=== PATIENT | female | born 1980 | race Caucasian/White ===

== ENCOUNTER → 2017-12-08 09:24 | Outpatient (CLI) | payer MEDICAID, SELFPAY ==
[2017-12-09 14:30] LABS: HIV Screen 4th Generation wRfx Non Reactive (Non Reactive); Hep B Surface Ab, Qual Reactive (.); Hepatitis C Antibody <0.1 s/co ratio (0.0-0.9)
== END ==
PROVIDERS: Visit Provider Preventive Medicine Addiction Medicine
DX: Z87.898 Personal history of other specified conditions (principal)
CPT/HCPCS: 36415; 86703; 86706; 87380; G0432

== ENCOUNTER 2020-06-28 18:34 | Emergency (ER) | payer BC, SELFPAY ==
[2020-06-28 18:36] VITALS: BP 162/97; PULSE 94; RESP 22; TEMP 37; O2SAT 98; BMI 32.9
--- NOTE | 2020-06-28 18:50 | PC.NURSE ---
pt brought to triage room to assess r/t c/o SOA. NO distress noted. vital signs : bp 147/88 hr 99 rr 18 temp 98.3 SaO2 98% on RA pt reports she began having a migraine, neck stiffness, body aches, cough, and hurts when she breaths one day ago. pt reports allergy to pcn, current daily smoker. will assign pt to a room in ER as soon as one is available.
--- NOTE | 2020-06-28 19:46 | CT_ITS ---
PROCEDURE: CT HEAD/BRAIN WO CON CLINICAL INDICATION: [place] Severe headache COMPARISON: No exams were available for comparison TECHNIQUE: Axial images obtained. All CT scans at the facility use one or more dose reduction, viz: automated exposure control, ma/kV adjustment per patient size (including targeted exams where dose is matched to indication, i.e. head), or iterative reconstruction technique. FINDINGS: No midline shift, mass effect, intracranial hemorrhage, hydrocephalus, or extra-axial fluid collection is evident. There is a subtle area of decreased attenuation in the junction of the left frontal and parietal lobe in the subcortical region series 2, image 2. While this could be due to an area of ischemic gliotic change or partial volume averaging artifact, 1 cannot exclude an underlying lesion. Suggest nonemergent MRI without and with gadolinium enhancement for further evaluation in this patient with headache. The calvarium has an unremarkable appearance. No mastoid effusion. No sinus air-fluid level. IMPRESSION: 1. No acute intracranial findings. 2. There is a subtle area of decreased attenuation in the junction of the left frontal and parietal lobe in the subcortical region series 2, image 2. While this could be due to an area of ischemic gliotic change or partial volume averaging artifact, 1 cannot exclude an underlying lesion. Suggest nonemergent MRI without and with gadolinium enhancement for further evaluation in this patient with headache. Dictated by: Satnam Harper MD 06/29/2020 06:00 Satnam Harper MD in [facility] 06/29/2020 06:00
--- NOTE | 2020-06-28 19:46 | XR_ITS ---
PROCEDURE: XR CHEST 2V CLINICAL HISTORY: SOA COMPARISON: No exams were available for comparison FINDINGS: Normal heart size. There is a calcified node in the right pretracheal region. The lungs are clear without infiltrates, suspicious nodules, or pleural effusions. There is calcified granuloma in the right perihilar region. Mild thoracic scoliosis convex right.tr IMPRESSION: No acute finding Dictated by: Satnam Harper MD 06/28/2020 23:39 Satnam Harper MD in [facility] 06/28/2020 23:39
[2020-06-28 20:05] LABS: Chloride 104 mmol/L (98-107)
[2020-06-28 20:06] LABS: Potassium 3.5 mmoL/L (3.5-5.1); Sodium 139 mmol/L (136-145)
[2020-06-28 20:08] LABS: Alanine Aminotransferase 20 U/L (12-78); Alkaline Phosphatase 105 U/L (38-126); Anion Gap 10.5 mEq/L (5-15); Aspartate Amino Transferase 29 U/L (14-36); Bilirubin,Direct 0.1 mg/dl (0.0-0.4); Bilirubin,Indirect 0.4 mg/dL (0.0-0.9); Bilirubin,Total 0.5 mg/dl (0.2-1.3); Bilirubin,Unconjugated 0.4 mg/dL (0.0-1.1); Blood Urea Nitrogen 10 mg/dl (7-17); Carbon Dioxide 28 mmol/L (22.0-30.0); Creatinine Clearance Estimated 150 mL/min (50-200); Estimated Glomerular Filt Rate 92 ml/min (>60); GFR (African American) 112 ML/MIN (>60)
[2020-06-28 20:09] LABS: Albumin Level 4.6 g/dl (3.5-5.0); Calcium 9.5 mg/dl (8.4-10.2); Glucose 130 mg/dl (74-100); Total Protein,Serum 7.6 g/dl (6.3-8.2)
[2020-06-28 20:12] LABS: Basophils # 0.1 K/mm3 (0-0.2); Basophils % 0.7 % (0.1-2.0); Eosinophils # 0.4 K/mm3 (0.0-0.4); Eosinophils % 3.1 % (0.1-12.0); Hematocrit 44.6 % (37.0-47.0); Hemoglobin 14.9 g/dL (12.2-16.2); Lymphocytes # 4.3 K/mm3 (0.7-4.5); Lymphocytes % 37.4 % (10-50); Mean Corpuscular HGB Conc 33.5 g/dL (31.8-35.4); Mean Corpuscular Hemoglobin 32.4 pg (27.0-31.2); Mean Corpuscular Volume 96.7 fl (81-99); Mean Platelet Volume 7.5 fl (7.4-10.4); Monocytes # 0.7 K/mm3 (0.1-1.0); Monocytes % 5.8 % (1.7-9.3); Neutrophils # 6.1 K/mm3 (1.8-7.8); Neutrophils % 53.1 % (37.0-80.0); Platelet Count 243 K/mm3 (142-424); Red Blood Count 4.61 M/mm3 (4.20-5.40); White Blood Count 11.4 K/mm3 (4.8-10.8)
--- NOTE | 2020-06-28 20:17 | HMH.EDHA ---
ED Disposition Clinical Impression: Headache Qualifiers: Headache type: unspecified Headache chronicity pattern: acute headache Intractability: not intractable Qualified Code(s): R51.9 - Headache, unspecified Disposition: Home, Self-Care Condition on Discharge: Good Instructions: DI for Headache Additional Instructions: fluids and see pcp for follow up Referrals: Casey Acosta MD [Primary Care Provider] - - Critical Care Critical Care Time: No Attestation: On 06/28/20, the high probability of a clinically significant, sudden or life threatening deterioration of the following system(s) required my full and direct attention, intervention and personal management. The time I documented below is in addition to time spent performing reported procedures but includes the following listed in this critical care notation. Medical Decision Making - Medical Records Medical records reviewed: Yes: I reviewed the patient's medical records. - Eric Inquiry Pt receiving controlled substance: No Vital Signs: 06/28/20 18:36 Temperature 98.6 F Temperature Source Oral Pulse Rate [Right Brachial] 94 H Respiratory Rate 22 Blood Pressure [Right Arm] 162/97 H Blood Pressure Mean [Right Arm] 118 02 Sat by Pulse Oximetry 98 Oxygen Delivery Method Room Air - Lab Data Lab results reviewed: Yes: I reviewed the patient's lab results. Lab Results 06/28/20 19:40: WBC 11.4 H, RBC 4.61, Hgb 14.9, Hct 44.6, MCV 96.7, MCH 32.4 H, MCHC 33.5, RDW 14.0, Plt Count 243, MPV 7.5, Neut % (Auto) 53.1, Lymph % (Auto) 37.4, Mitchell % (Auto) 5.8, Eos % (Auto) 3.1, Baso % (Auto) 0.7, Neut # (Auto) 6.1, Lymph # (Auto) 4.3, Mitchell # (Auto) 0.7, Eos # (Auto) 0.4, Baso # (Auto) 0.1 06/28/20 19:40: Sodium 139, Potassium 3.5, Chloride 104, Carbon Dioxide 28, Anion Gap 10.5, BUN 10, Creatinine 0.70, Estimated Creat Clear 150, Estimated GFR 92, Est GFR ( Amer) 112, Glucose 130 H, Calcium 9.5, Total Bilirubin 0.5, Direct Bilirubin 0.1, Conjugated Bilirubin 0.0, Indirect Bilirubin 0.4, Unconjugated Bilirubin 0.4, AST 29, ALT 20, Alkaline Phosphatase 105, Troponin I < 0.01, NT-Pro-B Natriuret Pep 79.8, Total Protein 7.6, Albumin 4.6 06/28/20 19:40: Lactate 1.0 Result diagrams: 06/28/20 19:40 06/28/20 19:40 Orders (Tests/Meds): ED MEDICATIONS Generic Name Dose Route Start Last Admin Trade Name Freq PRN Reason Stop Dose Admin Sodium Chloride 1,000 mls @ 999 mls/hr 06/28/20 20:00 06/28/20 19:55 Sod Chlor 0.9% 1000ml Bag IV 06/28/20 21:00 999 mls/hr .Q1H1M VIVI Administration Discontinued Medications Generic Name Dose Route Start Last Admin Trade Name Freq PRN Reason Stop Dose Admin Ketorolac Tromethamine 30 mg 06/28/20 19:51 06/28/20 19:55 Ketorolac 30mg/Ml Vial IV 06/28/20 19:52 30 mg ONCE ONE Administration Methylprednisolone Sodium Succinate 125 mg 06/28/20 19:51 06/28/20 19:55 Methylprednisolone Sod Succ 125mg Vial IV 06/28/20 19:52 125 mg ONCE ONE Administration Promethazine HCl 25 mg 06/28/20 20:57 06/28/20 21:01 Promethazine Hcl 25mg/Ml 1ml Vial IV 06/28/20 20:58 25 mg ONCE ONE Administration Sodium Chloride 25 ml 06/28/20 20:57 Sodium Chloride 0.9% 25ml Bag IV 06/28/20 20:58 ONCE ONE ORDERS Category Date Time Status CT head/brain wo con Stat Cat Scan 06/28/20 19:46 Taken XR chest 2V Stat Exams 06/28/20 19:46 Taken Basic Metabolic Panel Stat Lab 06/28/20 19:40 Results Brain Natriuretic Peptide Stat Lab 06/28/20 19:40 Results Liver Panel Stat Lab 06/28/20 19:40 Results Procalcitonin Stat Lab 06/28/20 19:40 Results Troponin I Q3H Lab 06/28/20 23:00 Ordered Troponin I Q3H Lab 06/29/20 02:00 Ordered Troponin I Stat Lab 06/28/20 19:40 Results - Radiology Data #1 Image(s): Chest Image Reviewed: Yes I reviewed the patient's radiology image Preliminary Findings: Abnormal (hilar changes ) - CT Data CT Scan: Head Time Received: 21:[address] Revi
[2020-06-28 20:18] LABS: NT Pro Brain Natriuretic Pep. 79.8 pg/mL (0-125)
[2020-06-28 20:24] LABS: Troponin I < 0.01 ng/ml (0.00-0.034)
[2020-06-28 21:27] VITALS: BP 144/81; PULSE 76; RESP 16; TEMP 36.8; O2SAT 95
[2020-06-28 21:50] LABS: Procalcitonin 0.052 ng/mL (0.0-2.0)
== END 2020-06-28 21:30 | disposition home or self-care (01) ==
PROVIDERS: Emergency Provider Emergency Medicine; PCP Emergency Medicine
DX: R51.9 Headache, unspecified (principal); R06.02 Shortness of breath; R11.0 Nausea; F33.1 Major depressive disorder, recurrent, moderate; F17.210 Nicotine dependence, cigarettes, uncomplicated; Z79.899 Other long term (current) drug therapy; Z88.0 Allergy status to penicillin; E78.5 Hyperlipidemia, unspecified
CPT/HCPCS: 70450; 71046; 80048; 80076; 83605; 83880; 84145; 84484; 85025; 96365; 96375; 99283

== ENCOUNTER → 2020-07-07 10:31 | Outpatient (CLI) | payer BC, SELFPAY ==
--- NOTE | 2020-07-07 10:31 | MR_ITS ---
PROCEDURE: MR HEAD/BRAIN WO/W CON CLINICAL INDICATION: abn CT ABNORMAL CT HEAD 06-28-20, HEADACHES X1 WEEK. COMPARISON: CT CT HEAD/BRAIN WO CON from 06/28/2020 TECHNIQUE: Routine multiplanar multi echo sequences are performed without gadolinium enhancement. FINDINGS: No midline shift, mass effect, intracranial hemorrhage, or hydrocephalus. No evidence of acute infarction. The cerebellopontine angles, cerebellum, brainstem and mid brain have an unremarkable appearance. No enhancing lesions are evident. There is a small area of increased T2 signal within the white matter at the left parietal lobe. This area does not demonstrate any enhancement or restricted diffusion. There are a few other small T2 white matter hyperintensities. The pituitary, optic chiasm, corpus callosum, and cranial cervical junction have an unremarkable appearance. IMPRESSION: 1. There is a small T2 white matter hyperintensity measuring 6 mm in the left anterior parietal region corresponding to the CT abnormality along with a few other smaller T2 white matter hyperintensities. This does not enhance or show restricted diffusion and is nonspecific and could be due to ischemic gliotic change from microvascular disease. Demyelinating process such as multiple sclerosis is included in the differential diagnosis. Migraine headache is also consideration. Follow-up may confirm stability. 2. No acute infarction. No enhancing lesion or other significant anomaly Dictated by: Satnam Harper MD 07/13/2020 07:56 Satnam Harper MD in [place] 07/13/2020 07:56
== END ==
PROVIDERS: PCP Emergency Medicine; Visit Provider Emergency Medicine
DX: R51.9 Headache, unspecified (principal); R93.0 Abnormal findings on diagnostic imaging of skull and head, not elsewhere classified
CPT/HCPCS: 70553; A9576

== ENCOUNTER → 2020-07-11 14:06 | Outpatient (CLI) | payer BC, SELFPAY | PROVIDERS: PCP Emergency Medicine; Visit Provider Emergency Medicine | DX: R90.89 Other abnormal findings on diagnostic imaging of central nervous system (principal); R51.9 Headache, unspecified ==

== ENCOUNTER → 2020-08-01 08:27 | Outpatient (CLI) | payer BC, SELFPAY ==
--- NOTE | 2020-08-01 08:30 | XR_ITS ---
PROCEDURE: XR WRIST LT MIN 3V CLINICAL INDICATION: left wrist pain COMPARISON: No exams were available for comparison FINDINGS: No fracture or dislocation. No lytic or blastic change. There is normal mineralization. The joint spaces are well-preserved. No significant degenerative/arthritic changes. No erosive changes evident. Other findings:None. IMPRESSION: No acute findings. Dictated by: Satnam Harper MD 08/01/2020 19:17 Satnam Harper MD in [facility] 08/01/2020 19:17
--- NOTE | 2020-08-01 08:30 | XR_ITS ---
PROCEDURE: XR WRIST RT MIN 3V CLINICAL INDICATION: right wrist pain COMPARISON: No exams were available for comparison FINDINGS: No fracture or dislocation. No lytic or blastic change. There is normal mineralization. The joint spaces are well-preserved. No significant degenerative/arthritic changes. No erosive changes evident. Other findings:Minimal spurring noted at the radiocarpal joint IMPRESSION: Mild degenerative change radiocarpal joint Dictated by: Satnam Harper MD 08/01/2020 19:17 Satnam Harper MD in [place] 08/01/2020 19:17
== END ==
LOC: RAD 08:28
PROVIDERS: PCP Emergency Medicine; Visit Provider Orthopaedic Surgery
DX: M25.532 Pain in left wrist (principal); M25.531 Pain in right wrist
CPT/HCPCS: 73110

== ENCOUNTER → 2020-08-08 15:09 | Outpatient (CLI) | payer BC, SELFPAY ==
[2020-08-08 15:55] LABS: Basophils # 0.1 K/mm3 (0-0.2); Basophils % 0.6 % (0.1-2.0); Eosinophils # 0.3 K/mm3 (0.0-0.4); Eosinophils % 2.3 % (0.1-12.0); Hematocrit 44.2 % (37.0-47.0); Hemoglobin 15.4 g/dL (12.2-16.2); Lymphocytes # 4.2 K/mm3 (0.7-4.5); Lymphocytes % 34.3 % (10-50); Mean Corpuscular HGB Conc 34.9 g/dL (31.8-35.4); Mean Corpuscular Hemoglobin 32.5 pg (27.0-31.2); Mean Corpuscular Volume 93.2 fl (81-99); Mean Platelet Volume 7.7 fl (7.4-10.4); Monocytes # 0.7 K/mm3 (0.1-1.0); Monocytes % 5.7 % (1.7-9.3); Neutrophils % 57.1 % (37.0-80.0); Platelet Count 288 K/mm3 (142-424); Red Blood Count 4.74 M/mm3 (4.20-5.40); Red Cell Distribution Width 13.7 % (11.5-17.5); White Blood Count 12.3 K/mm3 (4.8-10.8)
[2020-08-08 16:23] LABS: Chloride 101 mmol/L (98-107); Sodium 137 mmol/L (136-145)
[2020-08-08 16:24] LABS: Potassium 3.8 mmoL/L (3.5-5.1)
[2020-08-08 16:26] LABS: Alanine Aminotransferase 17 U/L (12-78); Albumin Level 4.8 g/dl (3.5-5.0); Albumin/Globulin Ratio 1.7 (1.1-1.8); Alkaline Phosphatase 99 U/L (38-126); Anion Gap 11.8 mEq/L (5-15); Aspartate Amino Transferase 26 U/L (14-36); Bilirubin,Total 0.5 mg/dl (0.2-1.3); Blood Urea Nitrogen 9 mg/dl (7-17); Carbon Dioxide 28 mmol/L (22.0-30.0); Estimated Glomerular Filt Rate 61 ml/min (>60); GFR (African American) 74 ML/MIN (>60); Globulin 2.9 g/dL (1.3-3.2); Total Protein,Serum 7.7 g/dl (6.3-8.2)
[2020-08-08 16:27] LABS: Calcium 10.5 mg/dl (8.4-10.2); Glucose 98 mg/dl (74-100)
[2020-08-08 16:50] LABS: Coronavirus 19 IgG Antibody Negative (Negative); Coronavirus 19 IgM Antibody Negative (Negative)
== END ==
PROVIDERS: Visit Provider Orthopaedic Surgery
DX: Z01.818 Encounter for other preprocedural examination (principal); Z11.52 Encounter for screening for COVID-19; G56.02 Carpal tunnel syndrome, left upper limb
CPT/HCPCS: 36415; 80053; 85025; 86328

== ENCOUNTER 2020-08-10 07:26 | Day surgery (SDC) | payer BC, SELFPAY ==
[2020-08-07 13:26] VITALS: BMI 32.9
[2020-08-10 06:23] LABS: HCG Qualitative, Serum Negative (Negative)
[2020-08-10 07:49] VITALS: BP 127/69; PULSE 72; RESP 20; TEMP 36.5; O2SAT 97
--- NOTE | 2020-08-10 08:06 | P.PN_ITS ---
[facility] Anesthesia Checklist - Patient Identification Patient Identification: Arm Band - Structural Data Admitted From: Home Planned Operative Procedure/s: Left CTR Consent for Planned Operative Procedure(s) Verified: Yes Verified Documents: Surgical Consent - NPO Status Verified Time NPO: 00:00 - Anesthesia Plan Anesthesia Risk discussed: Yes Anesthesia Plan: Verified ASA Class: II Anesthesia Type: Local & MAC [facility] History I have reviewed the patient's past medical history: Yes Medical History: Reports:: Arrhythmia, Depression, Hyperlipidemia, Lung Disease Denies:: Cancer, Diabetes Mellitus Type 1, Diabetes Mellitus Type 2, MRSA *Have you ever received a pneumonia vaccine?: No *Have you received a flu vaccine this season?: Yes Anesthesia experience/problems:: non Laterality Cases: Left: Arthroscopy Knee, Breast Biopsy, Bilateral: Tonsillectomy Other Surgeries: Yes: Cardiac Catheterization, Colonoscopy, Tubal Ligation Amputation: No Fractures: Yes (rt wrist) - *Social History Last grade of school completed: 11th or 12th Smoking Status: Current every day smoker Tobacco Type: cigarettes # Packs/Day (cigarettes): 2 Alcohol Intake: never Substance Use Type: prescription drug *Occupational Status:: employed Housing: house Household Members: family *Travel in the last 8 weeks: None - Psychiatric History Pschychiatric History:: Reports:: Depression Family Hx:: Diabetes, Heart Attack, Hypertension, Coronary Artery Disease, Cancer, Hyperlipidemia, Thyroid Disorder, Substance abuse
[2020-08-10 10:01] VITALS: BP 123/59; PULSE 85; RESP 18; TEMP 36.3; O2SAT 98
[2020-08-10 10:16] VITALS: BP 111/78; PULSE 82; RESP 18; O2SAT 96
[2020-08-10 10:31] VITALS: BP 104/55; PULSE 80; RESP 16; O2SAT 98
--- NOTE | 2020-08-10 10:40 | HMH.OPNOTE ---
Date of procedure: 08/10/20 Pre-op Diagnosis:: Carpal tunnel syndrome, left wrist Post-op Diagnosis:: Same Procedure performed:: Open carpal tunnel release, left wrist Surgeon:: Maxi Nru MD [facility] Cutter(s):: Caitie Georges SELVAGE MACHINE OPERATOR:: Other (Carl Aquino) Anesthesia: MAC, local (10 mL of 0.5% Marcaine with epinephrine) Estimated blood loss (mL): 2 Clinical Note:: Patient is a 40-year-old female with bilateral carpal tunnel syndrome with chronic symptoms. EMG/NCV studies confirmed carpal tunnel syndrome on both sides. Her symptoms are more severe on the left side. Patient is having significant and disabling symptoms and has failed to respond adequately to conservative management. Therefore, carpal tunnel release surgery is necessary to relieve symptoms, preserve the remaining fibers of the median nerve, improve function and decrease the pain, paresthesias and weakness and to prevent permanent nerve damage. 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 She has history of hypertension and abnormal heart rate. Not a known diabetic. Please refer to my office note for full details. Operative findings:: The intraoperative findings showed the median nerve to be very tightly compressed in the distal part of the carpal tunnel and hyperemic. The flexor retinaculum was noted to be thick and very tight. There was mild synovitis in the carpal tunnel. There was no evidence of any space-occupying lesions within the carpal tunnel. Operative note:: On the day of the surgery the patient was met in the preoperative area. Patient was positively identified and the operative site was marked and initialed by me. A physical examination was performed and the chart was updated. I again discussed the procedure, risks and benefits and alternatives with the patient. The complications discussed include but are not limited to- bleeding, injury to nerves, blood vessels and tendons, infection, wound dehiscence, incomplete relief/continued pain, persistent numbness, palmar hypersensitivity, pillar pain, DVT/PE, complex regional pain syndrome(CRPS), worsening of nerve damage, failure of the condition to improve, incomplete return of function, bowstringing of tendons, weakness of perfect bind machine operator strength, recurrence, failure of the surgery to accomplish the desired goals, decreased use of the hand, loss of use of the arm, loss of the hand or arm, loss of life. Likely need for further surgery in the future has been discussed. I've indicated to the patient where the proposed incision would be made and also discussed the possibility of extending the incision if needed to accomplish an effective release. We have discussed how the goal of surgery is to protect the fibers which have remained healthy and hopefully reverse the symptoms of the fibers which are compromised but still recoverable. We have explained that, fibers that are permanently damaged will not recover. Patient asked appropriate questions and all have been answered by me. Patient wished to proceed with the surgery. Patient understood the risks, agreed to proceed with surgery, and no guarantees or assurances were given or implied. The patient was brought to the operating room and placed supine on the operating table. The left upper extremity was placed over a side table. All the bony prominences were well-padded. The patient had a MAC anesthesia administered by the football coach. The left upper extremity was prepped and draped in the usual sterile fashion. A preprocedure timeout was performed as per hospital policy. The skin incision was marked using the Toussaint's landmarks, just ulnar to the thenar crease. I injected 5 cc of 0.5% Marcaine with epinephrine along the line of incision for local anesthesia. The limb was exsanguinated with the Esmarch bandage and tourniquet was inflated to 250 mmHg. Please see nursing records for the total tourniquet time. Toussaint's landmarks were utilized and a skin incision was made parallel and just
[2020-08-10 10:46] VITALS: BP 109/81; PULSE 78; RESP 16; O2SAT 97
== END 2020-08-10 10:46 | disposition home or self-care (01) ==
LOC: OR 07:28
PROVIDERS: PCP Emergency Medicine; Visit Provider Orthopaedic Surgery
PROC: (CPT 64721; principal; 2020-08-10 09:00)
DX: G56.02 Carpal tunnel syndrome, left upper limb (principal)
CPT/HCPCS: 64721; 84703; 96374

== ENCOUNTER → 2020-08-23 13:19 | Outpatient (CLI) | payer BC, SELFPAY ==
--- NOTE | 2020-08-23 13:19 | US_ITS ---
PROCEDURE: US TRANSVAGINAL CLINICAL INDICATION: pelvic pain, painful periods, painful intercourse COMPARISON: No exams were available for comparison FINDINGS: UTERUS: 9cm x 6cmx 5cm with a combined endometrial thickness of 12.8mm LEFT OVARY: [id number] with a volume of 4.5ml. RIGHT OVARY: [id number] with a volume of 11.3ml. Uterus is somewhat bulky measuring 9 x 5 x 6 cm in the endometrium is slightly thickened at 13 mm. Along posterior aspect of the uterus there is a fibroid at 2.5 x 1.5 cm. There are small cyst involving the right ovary measuring up to 2 cm. The left ovary has an unremarkable appearance. IMPRESSION: Bulky uterus with uterine fibroid. Mildly thickened endometrium. 2 cm right ovarian cyst Dictated by: Satnam Harper MD 08/23/2020 16:55 Satnam Harper MD in [facility] 08/23/2020 16:55
== END ==
PROVIDERS: PCP Emergency Medicine; Visit Provider Nurse Practitioner Obstetrics & Gynecology
DX: R10.2 Pelvic and perineal pain (principal); N94.6 Dysmenorrhea, unspecified; N94.10 Unspecified dyspareunia
CPT/HCPCS: 76830

== ENCOUNTER → 2020-09-05 16:38 | Outpatient (CLI) | payer BC, SELFPAY ==
[2020-09-05 17:40] LABS: Basophils # 0.1 K/mm3 (0-0.2); Basophils % 0.7 % (0.1-2.0); Eosinophils # 0.3 K/mm3 (0.0-0.4); Eosinophils % 2.7 % (0.1-12.0); Hematocrit 43.5 % (37.0-47.0); Hemoglobin 14.2 g/dL (12.2-16.2); Lymphocytes # 3.1 K/mm3 (0.7-4.5); Mean Corpuscular HGB Conc 32.7 g/dL (31.8-35.4); Mean Corpuscular Hemoglobin 31.5 pg (27.0-31.2); Mean Corpuscular Volume 96.4 fl (81-99); Mean Platelet Volume 7.4 fl (7.4-10.4); Monocytes # 0.5 K/mm3 (0.1-1.0); Neutrophils # 5.8 K/mm3 (1.8-7.8); Neutrophils % 59.7 % (37.0-80.0); Platelet Count 264 K/mm3 (142-424); Red Blood Count 4.51 M/mm3 (4.20-5.40); Red Cell Distribution Width 13.2 % (11.5-17.5); White Blood Count 9.7 K/mm3 (4.8-10.8)
[2020-09-05 18:20] LABS: Alanine Aminotransferase 23 U/L (12-78); Albumin Level 4.5 g/dl (3.5-5.0); Albumin/Globulin Ratio 1.7 (1.1-1.8); Alkaline Phosphatase 97 U/L (38-126); Aspartate Amino Transferase 32 U/L (14-36); Bilirubin,Total 0.4 mg/dl (0.2-1.3); Blood Urea Nitrogen 7 mg/dl (7-17); Carbon Dioxide 28 mmol/L (22.0-30.0); Chloride 105 mmol/L (98-107); Estimated Glomerular Filt Rate 92 ml/min (>60); GFR (African American) 112 ML/MIN (>60); Globulin 2.7 g/dL (1.3-3.2); Glucose 100 mg/dl (74-100); Sodium 139 mmol/L (136-145); Total Protein,Serum 7.2 g/dl (6.3-8.2)
[2020-09-05 18:31] LABS: Coronavirus 19 IgG Antibody Negative (Negative); Coronavirus 19 IgM Antibody Negative (Negative)
== END ==
PROVIDERS: Visit Provider Orthopaedic Surgery
DX: Z01.818 Encounter for other preprocedural examination (principal); Z20.822 Contact with and (suspected) exposure to COVID-19; G56.02 Carpal tunnel syndrome, left upper limb
CPT/HCPCS: 36415; 80053; 85025; 86328

== ENCOUNTER 2020-09-07 08:27 | Day surgery (SDC) | payer BC, SELFPAY ==
[2020-09-05 10:08] VITALS: BMI 31.6
[2020-09-07] VITALS (7 sets, daily range): BP systolic 120–150; BP diastolic 70–87; PULSE 80–84; RESP 18; TEMP 36.6–43; O2SAT 96–100
[2020-09-07 06:35] LABS: HCG Qualitative, Serum Negative (Negative)
--- NOTE | 2020-09-07 13:04 | HMH.OPNOTE ---
Date of procedure: 09/07/20 Pre-op Diagnosis:: Carpal tunnel syndrome, right wrist Post-op Diagnosis:: Same Procedure performed:: Open carpal tunnel release, right wrist Surgeon:: Maxi Nur MD Machine Stamper(s):: Sherly Collier LANGUAGE PATHOLOGIST:: Thad Acosta Anesthesia: MAC, local Estimated blood loss (mL): 2 Clinical Note:: Patient is a 40-year-old female with right carpal tunnel syndrome with long-standing symptoms. EMG/NCV studies confirmed carpal tunnel syndrome on both sides and she previously underwent successful carpal tunnel release on the left side. Patient is having significant and disabling symptoms and has failed to respond adequately to conservative management.]. Therefore, carpal tunnel release surgery is necessary to relieve symptoms, preserve the remaining fibers of the median nerve, improve function and decrease the pain, paresthesias and weakness and to prevent permanent nerve damage. Please refer to my office note for full details. Operative findings:: The intraoperative findings showed the median nerve to be very tightly compressed and hyperemic. The flexor retinaculum was noted to be thick and tight. There was mild synovitis in the carpal tunnel. There was no evidence of any space-occupying lesions within the carpal tunnel. Operative note:: On the day of the surgery the patient was met in the preoperative area. Patient was positively identified and the operative site was marked and initialed by me. A physical examination was performed and the chart was updated. I again discussed the procedure, risks and benefits and alternatives with the patient. The complications discussed include but are not limited to- bleeding, injury to nerves, blood vessels and tendons, infection, wound dehiscence, incomplete relief/continued pain, persistent numbness, palmar hypersensitivity, pillar pain, DVT/PE, complex regional pain syndrome(CRPS), worsening of nerve damage, failure of the condition to improve, incomplete return of function, bowstringing of tendons, weakness of caregiver services home strength, recurrence, failure of the surgery to accomplish the desired goals, decreased use of the hand, loss of use of the arm, loss of the hand or arm, loss of life. Likely need for further surgery in the future has been discussed. I've indicated to the patient where the proposed incision would be made and also discussed the possibility of extending the incision if needed to accomplish an effective release. We have discussed how the goal of surgery is to protect the fibers which have remained healthy and hopefully reverse the symptoms of the fibers which are compromised but still recoverable. We have explained that, fibers that are permanently damaged will not recover. Patient previously had surgery on the left side with very good symptomatic relief and is aware of the procedure as well as postoperative recovery. Patient asked appropriate questions and all have been answered by me. Patient wished to proceed with the surgery. Patient understood the risks, agreed to proceed with surgery, and no guarantees or assurances were given or implied. The patient was brought to the operating room and placed supine on the operating table. The right upper extremity was placed over a side table. All the bony prominences were well-padded. MAC anesthesia administered with instructor product inspection. A well-padded tourniquet cuff was placed over the upper arm. The right upper extremity was prepped and draped in the usual sterile fashion. A preprocedure timeout was performed as per hospital policy. The skin incision was marked using the Toussaint's landmarks, just ulnar to the thenar crease. I have then injected 10 cc of 0.5% Marcaine with epinephrine along the course of the proposed incision and into the carpal tunnel. The tourniquet was not utilized during the procedure. Toussaint's landmarks were utilized and a skin incision was made parallel and just ulnar to the thenar crease with a 15 blade. Blunt tissue dissection was cynthia
== END 2020-09-07 12:40 | disposition home or self-care (01) ==
LOC: OR 08:29
PROVIDERS: PCP Emergency Medicine; Visit Provider Orthopaedic Surgery
PROC: (CPT 64721; principal; 2020-09-07 10:30)
DX: G56.01 Carpal tunnel syndrome, right upper limb (principal); Z79.899 Other long term (current) drug therapy; Z72.0 Tobacco use
CPT/HCPCS: 64721; 84703; 96374

== ENCOUNTER → 2020-09-26 13:20 | Outpatient (CLI) | payer BC, SELFPAY ==
[2020-09-26 13:39] LABS: Basophils # 0.1 K/mm3 (0-0.2); Basophils % 0.9 % (0.1-2.0); Eosinophils # 0.3 K/mm3 (0.0-0.4); Eosinophils % 2.8 % (0.1-12.0); Hematocrit 45.2 % (37.0-47.0); Hemoglobin 14.8 g/dL (12.2-16.2); Lymphocytes # 3.4 K/mm3 (0.7-4.5); Lymphocytes % 33.7 % (10-50); Mean Corpuscular HGB Conc 32.7 g/dL (31.8-35.4); Mean Corpuscular Hemoglobin 31.1 pg (27.0-31.2); Mean Corpuscular Volume 95.1 fl (81-99); Mean Platelet Volume 7.8 fl (7.4-10.4); Monocytes # 0.6 K/mm3 (0.1-1.0); Monocytes % 5.5 % (1.7-9.3); Neutrophils # 5.8 K/mm3 (1.8-7.8); Neutrophils % 57.2 % (37.0-80.0); Platelet Count 256 K/mm3 (142-424); Red Blood Count 4.75 M/mm3 (4.20-5.40); Red Cell Distribution Width 13.6 % (11.5-17.5); White Blood Count 10.2 K/mm3 (4.8-10.8)
[2020-09-26 14:09] LABS: Chloride 110 mmol/L (98-107); Sodium 141 mmol/L (136-145)
[2020-09-26 14:12] LABS: Anion Gap 11.4 mEq/L (5-15); Blood Urea Nitrogen 9 mg/dl (7-17); Calcium 9.8 mg/dl (8.4-10.2); Carbon Dioxide 24 mmol/L (22.0-30.0); Estimated Glomerular Filt Rate 110 ml/min (>60); GFR (African American) 133 ML/MIN (>60); Glucose 103 mg/dl (74-100); Potassium 4.4 mmoL/L (3.5-5.1)
[2020-09-26 14:24] LABS: Coronavirus 19 IgG Antibody Negative (Negative); Coronavirus 19 IgM Antibody Negative (Negative)
[2020-09-26 18:27] LABS: HCG Qualitative, Serum Negative (Negative)
== END ==
PROVIDERS: Visit Provider Nurse Practitioner Obstetrics & Gynecology
DX: Z01.818 Encounter for other preprocedural examination (principal); Z11.52 Encounter for screening for COVID-19; N39.3 Stress incontinence (female) (male); N92.0 Excessive and frequent menstruation with regular cycle; R10.2 Pelvic and perineal pain
CPT/HCPCS: 36415; 80048; 84703; 85025; 86328

== ENCOUNTER 2020-09-27 05:55 | Day surgery (SDC) | payer BC, SELFPAY ==
[2020-09-25 13:10] VITALS: BMI 33.6
[2020-09-27] VITALS (13 sets, daily range): BP systolic 127–155; BP diastolic 70–117; PULSE 83–137; RESP 18–19; TEMP 36.5–43; O2SAT 97–99
--- NOTE | 2020-09-27 06:58 | P.PN_ITS ---
[facility] Anesthesia Checklist - Patient Identification Patient Identification: Arm Band - Structural Data Admitted From: Home Planned Operative Procedure/s: Hysteroscopy, D&C, TVT Consent for Planned Operative Procedure(s) Verified: Yes Verified Documents: Surgical Consent, History and Physical - NPO Status Verified Time NPO: 00:00 - Additional verifications Anesthesia Reactions: No Hx Blood Transfusions: No Blood Transfusion Reaction: No - Airway Assessment C-Spine Mobility Assessed: Yes (mp2) TMJ Mobility Assessed: Yes Dentition: Good Dentition (upper dentures removed) - Neurological Assessment Level of Consciousness: Awake, Alert - Anesthesia Plan Anesthesia Risk discussed: Yes Anesthesia Plan: Verified ASA Class: II Anesthesia Type: General [facility] History I have reviewed the patient's past medical history: Yes Medical History: Reports:: Arrhythmia, Depression, Hyperlipidemia, Hypertension, Lung Disease Denies:: Cancer, Diabetes Mellitus Type 1, Diabetes Mellitus Type 2, Internal Pacemaker, MRSA, Seizures *Have you ever received a pneumonia vaccine?: No *Have you received a flu vaccine this season?: Yes Other Medical History: Denies: Blood Transfusion Reaction Anesthesia experience/problems:: nac Laterality Cases: Left: Arthroscopy Knee, Breast Biopsy, Bilateral: Carpal Tunnel Release, Tonsillectomy Other Surgeries: Yes: Cardiac Catheterization, Colonoscopy, Tubal Ligation. No: Pacemaker Amputation: No Fractures: Yes (rt wrist) - *Social History Smoking Status: Current every day smoker Tobacco Type: cigarettes # Packs/Day (cigarettes): 1 Alcohol Intake: never Substance Use Type: prescription drug *Occupational Status:: employed Housing: house Household Members: spouse *Travel in the last 8 weeks: None - Psychiatric History Pschychiatric History:: Reports:: Depression Family Hx:: Diabetes, Heart Attack, Hypertension, Coronary Artery Disease, Cancer, Hyperlipidemia, Thyroid Disorder, Substance abuse
--- NOTE | 2020-09-27 08:24 | HMH.OPNOTE ---
Date of procedure: 09/27/20 Pre-op Diagnosis:: Menorrhagia, genuine stress urinary incontinence Post-op Diagnosis:: Menorrhagia, genuine stress urinary incontinence Procedure performed:: Hysteroscopy, dilation and curettage, tension-free vaginal tape Surgeon:: Canelo Soto MD TECHNICAL DELIVERY MANAGER:: Other (Dafne Mohan) Anesthesia: LMA Estimated blood loss (mL): 600 Clinical Note:: She is a 40-year-old lady who complains of extremely heavy periods. She also demonstrated genuine stress urinary incontinence at the time of urodynamics in my office. An ultrasound showed that she had a thickened endometrium. As result of that she was offered hysteroscopy, D&C as well as TVT. The risks and benefits of surgery were discussed with the patient prior to surgery. Operative findings:: She had a normal-appearing endometrial cavity. It was quite lush. Tubal ostia were seen. The bladder was visualized and appeared normal. There was a small amount of squamous metaplasia at the bladder base. Operative note:: She was taken to the operating room where LMA anesthesia was found be adequate. She was prepped and draped in normal sterile fashion in the lithotomy position. The bladder was drained. Weighted speculum was placed in the vagina. The anterior lip of the cervix was grasped with a tenaculum and the cervix was dilated to approximately 6 mm. I then inserted a hysteroscope into the uterine cavity. The findings were as previously dictated. I then further dilated the cervix to approximately 8 mm and using a medium curette I curetted the entire endometrial cavity. I injected 20 cc of 1% Xylocaine with epinephrine along the urethra and under the pubic rami bilaterally. I then injected 60 cc of 0.5% ropivacaine along the trocar paths in the space of Retzius with a spinal needle from above. I then grasped the vaginal mucosa with an Allis clamp just below the urethra and then again approximately 3 cm along. Made an incision with knife. I then grasped the edges of the vaginal mucosa using Metzenbaum scissors dissected out laterally to each pubic rami. I then inserted a catheter in the bladder with an obturator. I pulled it to its ipsilateral side and placed the left side of the tape. I went under the pubic rami, through the urogenital diaphragm and through the space of Retzius. I then passed the catheter out through the skin. Then inspected the bladder with a 70 degree cystoscope. There is no evidence of tape within the bladder. I then pulled the tape through to the midline. The bladder was then drained and once again the obturator was placed within the urethra and pulled to its ipsilateral side. I then placed the right side of the tape in the same fashion as the left side. Once again the bladder was inspected with a 70 degree cystoscope. There was no evidence of tape within the bladder. I then placed a packing forcep under the tape and removed his outer sheath. Once again I tested for attention by pushing on the bladder from above. There was no evidence of leakage. The tape was loose. I then cut the tape off at the level of the skin and pulled out the skin. The vaginal mucosa was then closed using interrupted 2-0 Vicryl suture in a mattress fashion. The suprapubic incisions were closed with Dermabond. Sterile dressings were applied. The bladder was then drained. She tolerated procedure well and was taken to the recovery room in excellent condition. All sponge, instrument and needle counts were correct. The estimated blood loss was 600 cc. She lost more blood than normal because she was quite oozy from the vaginal mucosa. Condition: stable Disposition: PACU Specimens:: Endometrial curettings Complications:: None
--- NOTE | 2020-09-27 08:28 | HMH.ANESI ---
[facility] Anesthesia Record Part I Intake, IV Amount: 800 Estimated blood loss (mL): 600 Urine output (mL): 0 Blood Pressure: 144/117 (Patient unable to stay still) SaO2: 99 Pulse Rate: 119 Respiratory Rate: 19 Temperature: 98.8 F Patient is:: Awake Stable to PACU at:: 08:22
--- NOTE | 2020-09-27 09:39 | PC.NURSE ---
IBUPROFEN 600MG GIVEN PO PER M BIANCA GONZALEZ FOR C/O PAIN PER DR DOWNEY ORDERS.
--- NOTE | 2020-09-27 14:29 | P.PN_ITS ---
[facility] Anesthesia Record Part II Discharge Time: 08:52 Destination: Surgical Day Care (OP Surgery) PACU nurse assessment reviewed?: Yes Patient Condition:: Good Anesthesia Complications:: None Swallowing reflex intact?: Yes Cyanosis?: No Blood Pressure: 137/79 Pulse Rate: 88 Temperature: 98.9 F Mental Status: Alert & Oriented Pain level:: 4 Nausea and/or vomitting:: None Intake, IV Amount: 0
== END 2020-09-27 09:52 | disposition home or self-care (01) ==
PROVIDERS: PCP Emergency Medicine; Visit Provider Nurse Practitioner Obstetrics & Gynecology
PROC: 0UDB8ZZ Extraction of Endometrium, Via Natural or Artificial Opening Endoscopic (ICD-10-PCS; CPT 58558; principal; 2020-09-27 07:30)
DX: N92.1 Excessive and frequent menstruation with irregular cycle (principal); N39.3 Stress incontinence (female) (male); I10 Essential (primary) hypertension; E78.5 Hyperlipidemia, unspecified; F32.9 Major depressive disorder, single episode, unspecified; I49.9 Cardiac arrhythmia, unspecified; Z87.39 Personal history of other diseases of the musculoskeletal system and connective tissue; Z72.0 Tobacco use; Z83.3 Family history of diabetes mellitus; Z82.49 Family history of ischemic heart disease and other diseases of the circulatory system; Z83.438 Family history of other disorder of lipoprotein metabolism and other lipidemia; Z80.9 Family history of malignant neoplasm, unspecified
CPT/HCPCS: 58558; 51992; 96374; C1771; J2405

== ENCOUNTER → 2020-12-25 15:15 | Outpatient (CLI) | payer BC, SELFPAY ==
[2020-12-25 18:32] LABS: Phencyclidine Screen,Urine Negative ng/ml (<25)
[2020-12-25 18:51] LABS: Amphetamine/Metha Screen,Urine Negative ng/ml (<1000)
[2020-12-25 18:52] LABS: Barbiturates Screen,Urine Negative ng/ml (<200)
[2020-12-25 18:53] LABS: Benzodiazepines Screen,Urine Negative ng/ml (<200); Cannabinoid Screen,Urine Negative ng/ml (<50)
[2020-12-25 18:54] LABS: Cocaine Screen,Urine Negative ng/ml (<300); Methadone Screen,Urine Negative ng/ml (<300)
[2020-12-25 18:55] LABS: Opiate Screen,Urine Negative ng/ml (<300)
== END ==
PROVIDERS: Visit Provider Emergency Medicine
DX: Z79.899 Other long term (current) drug therapy (principal)
CPT/HCPCS: 80305

== ENCOUNTER → 2021-03-06 13:54 | Outpatient (CLI) | payer SELFPAY ==
[2021-03-06 14:29] LABS: Amphetamine/Metha Screen,Urine Negative ng/ml (<1000)
[2021-03-06 14:30] LABS: Barbiturates Screen,Urine Negative ng/ml (<200); Benzodiazepines Screen,Urine Negative ng/ml (<200)
[2021-03-06 14:31] LABS: Cannabinoid Screen,Urine Negative ng/ml (<50)
[2021-03-06 14:32] LABS: Cocaine Screen,Urine Negative ng/ml (<300); Methadone Screen,Urine Negative ng/ml (<300)
[2021-03-06 14:33] LABS: Opiate Screen,Urine Negative ng/ml (<300); Phencyclidine Screen,Urine Negative ng/ml (<25)
== END ==
LOC: LAB.DROPOF 13:55
PROVIDERS: Visit Provider Emergency Medicine
DX: Z79.899 Other long term (current) drug therapy (principal)
CPT/HCPCS: 80305

== ENCOUNTER 2022-03-06 14:49 | Emergency (ER) | payer OTHER, SELFPAY ==
[2022-03-06 15:18] VITALS: BP 176/93; PULSE 107; RESP 19; TEMP 37.4; O2SAT 97; BMI 31.7
--- NOTE | 2022-03-06 15:20 | HMH.EDUTC ---
[facility] [place] Clinical Impression: Viral syndrome, Viral pharyngitis Disposition: Home, Self-Care Condition on Discharge: Good Instructions: Viral Pharyngitis, DI for Viral Pharyngitis, DI for Viral Syndrome Additional Instructions: Drink plenty of fluids. Take tylenol or ibuprofen for pain or fever. Take the medications as directed. Follow up with your regular doctor. GO TO THE ER FOR ANY WORSENING SYMPTOMS Quarantine until you know the results of your covid-19 test. Notify your school or workplace of your results and follow their instructions regarding return to work/school. Prescriptions: Ondansetron [Zofran 4mg ODT] 4 mg PO Q8HP PRN #12 tab PRN Reason: Nausea Transmission Status: Received by [facility] Benzonatate [Benzonatate 100mg cap] 100 mg PO TIDP PRN #30 cap PRN Reason: Cough Transmission Status: Received by [facility] Referrals: Casey Acosta MD [Primary Care Provider] - Forms: Work/School Release Time of Disposition: 15:33 Medical Decision Making - Medical Records Medical records reviewed: No: I reviewed the patient's medical records. - Eric Inquiry Pt receiving controlled substance: No Vital Signs: 03/06/22 15:18 03/06/22 15:39 Temperature 99.4 F 99.4 F Temperature Source Oral Pulse Rate 107 H Pulse Rate [Left] 107 H Respiratory Rate 19 19 Blood Pressure 176/83 H Blood Pressure [Right Arm] 176/93 H Blood Pressure Mean [Right Arm] 120 02 Sat by Pulse Oximetry 97 [facility] [place] HPI - General Stated complaint: [place], chills, body aches Time Seen by Provider: 03/06/22 15:20 - History of Present Illness Provider Complaint: She states that for the past 2 days she has had sore throat, chills, low grade fever, body aches, and a nonproductive cough. She has been exposed to covid-19. - Related Data Home Medications Medication Instructions Recorded Confirmed evolocumab 140 mg/mL subcutaneous 140 mg SQ Q2W 06/21/20 12/11/21 pen injector famotidine 20 mg tablet 20 mg PO DAILY tab 12/11/21 12/11/21 Previous Rx's Medication Instructions Recorded albuterol sulfate 90 mcg/actuation 2 inh INHALATION Q6H PRN #1 each 08/15/21 breath activated powder inhaler atorvastatin 80 mg tablet 80 mg PO HS #90 tab 08/15/21 furosemide 20 mg tablet 20 mg PO DAILY #90 tab 08/15/21 metoprolol tartrate 50 mg tablet 50 mg PO BID #180 tab 08/15/21 sertraline 50 mg tablet See Rx Instructions .ROUTE 08/15/21 .COMPLEX #90 tab omeprazole 20 mg capsule,delayed 40 mg PO DAILY #60 cap 12/11/21 release gabapentin 600 mg tablet 600 mg PO TID #90 tab 02/01/22 oxycodone-acetaminophen 7.5 mg-325 1 tab PO TID PRN #90 tab 02/01/22 mg tablet phentermine 37.5 mg tablet 37.5 mg PO DAILY #30 tab 02/01/22 Benzonatate [Benzonatate 100mg 100 mg PO TIDP PRN #30 cap 03/06/22 cap] Ondansetron [Zofran 4mg ODT] 4 mg PO Q8HP PRN #12 tab 03/06/22 Allergies Allergy/AdvReac Type Severity Reaction Status Date / Time penicillin G [PENICILLIN G] Allergy Mild Unknown Verified 03/06/22 15:21 allergy reaction doxycycline Allergy Unknown Rash Verified 03/06/22 15:21 [facility] History - Hepatitis A Screen Attestation statement:: This patient has been screened for Hepatitis A risk factors. I have reviewed the patient's past medical history: Yes Medical History: Reports:: Arrhythmia, Chronic Obstructive Pulmonary Disease (COPD), Depression, Hyperlipidemia, Hypertension, Lung Disease Denies:: Cancer, Diabetes Mellitus Type 1, Diabetes Mellitus Type 2, Internal Pacemaker, MRSA, Seizures Other Medical History: Denies: Blood Transfusion Reaction Laterality Cases: Left: Arthroscopy Knee, Breast Biopsy, Bilateral: Carpal Tunnel Release, Tonsillectomy Other Surgeries: Yes: Cardiac Catheterization, Colonoscopy, Tubal Ligation. No: Pacemaker Amputation: No Fractures: Yes (rt wrist) Comment: bladder sling iud - Social History Smoking Status: Cur
[2022-03-06 15:39] VITALS: BP 176/83; PULSE 107; RESP 19; TEMP 37.4
== END 2022-03-06 15:42 | disposition home or self-care (01) ==
PROVIDERS: Emergency Provider Nurse Practitioner Family; PCP Emergency Medicine
DX: J02.9 Acute pharyngitis, unspecified (principal); B34.9 Viral infection, unspecified
CPT/HCPCS: 99212; C9803; G0463; U0003; U0005

== ENCOUNTER 2022-03-19 10:33 | Emergency (ER) | payer OTHER, SELFPAY ==
[2022-03-19] VITALS (9 sets, daily range): BP systolic 134–195; BP diastolic 83–110; PULSE 85–112; RESP 20–22; TEMP 36.7–37; O2SAT 96–100; BMI 31.9
--- NOTE | 2022-03-19 10:29 | ECG_ITS ---
APPROVED REPORT Exam: Resting ECG HR:120 bpm ECG Measurements Heart Rate 120 AXES ND 116 P 58 QRSd 74 QRS 55 QT 339 T 51 QTc 410 Conclusion SINUS TACHYCARDIA WITH SHORT ND INTERVAL MINIMAL ST DEPRESSION [0.025+ mV ST DEPRESSION] ABNORMAL RHYTHM ECG UNCONFIRMED REPORT Electronically signed by : Barrett Giordano MD 03/19/2022 16:47:34
--- NOTE | 2022-03-19 10:36 | XR_ITS ---
FINAL REPORT CLINICAL HISTORY: chest pain COMPARISON: June 28, 2020 FINDINGS: Two views of the chest were obtained. The heart size and pulmonary vascularity are within normal limits. The mediastinum is normal. No acute pulmonary abnormality is identified. There is no pneumothorax. The bony thorax is intact. IMPRESSION: No active cardiopulmonary disease. Reviewed, Interpreted and Dictated by Salas Oates III, MD Transcribed by Grace Pavon Authenticated and [facility]
--- NOTE | 2022-03-19 10:38 | HMH.EDGENADL ---
Discharge Plan Disposition Patient Disposition: Home, Self-Care Condition: Good Prescriptions Prescriptions: No Action Repatha SureClick 140 mg/mL pen injector 140 mg SQ Q2W sertraline 50 mg tablet See Rx Instructions .ROUTE .COMPLEX Qty: 90 1RF Dose Instruction: TAKE ONE TABLET BY MOUTH EVERY DAY Rx Instructions: TAKE ONE TABLET BY MOUTH EVERY DAY metoprolol tartrate 50 mg tablet 50 mg PO BID Qty: 180 1RF furosemide 20 mg tablet 20 mg PO DAILY Qty: 90 1RF atorvastatin 80 mg tablet 80 mg PO HS Qty: 90 1RF albuterol sulfate 90 mcg/actuation aerosol powdr breath activated 2 inh INHALATION Q6H PRN (Reason: SOA) Qty: 1 0RF gabapentin 600 mg tablet 600 mg PO TID Qty: 90 1RF phentermine [Adipex-P] 37.5 mg tablet 37.5 mg PO DAILY Qty: 30 0RF Rx Instructions: must administer 30 minutes before or 1-2 hours after breakfast oxycodone-acetaminophen [Percocet] 7.5-325 mg tablet 1 tab PO TID PRN (Reason: pain) Qty: 90 0RF famotidine 20 mg tablet 20 mg PO DAILY omeprazole 20 mg capsule,delayed release(DR/EC) 40 mg PO DAILY Qty: 60 3RF ondansetron 4 MG tablet,disintegrating 4 mg PO Q8HP PRN (Reason: Nausea) Qty: 12 0RF benzonatate 100 MG capsule 100 mg PO TIDP PRN (Reason: Cough) Qty: 30 0RF Referrals Follow up/Referrals: Provider,Referral, MD [Referring] - See instructions Activity Restrictions/Add. Instructions Additional Instructions/Restrictions: Take metoprolol tartrate 50 mg twice a day. Follow-up with your primary care provider, call to make appointment. Additional instructions for CHEST PAIN: See your physician as soon as possible for further evaluation. Return immediately if worsening chest pain, vomiting, shortness of breath, fever, coughing of blood. Clinical Impressions Clinical Impression: Heart palpitations, Tachycardia, Essential hypertension Instructions Patient Instructions: DI for Atypical Chest Pain, DI for Tachycardia, DI for High Blood Pressure, DI for Palpitations Discharge ED Provider: Richard Abbott General Adult [facility] General Chief complaint: Chest Pain Stated complaint: CHESTPAIN Time Seen by Provider: 03/19/22 10:46 Mode of Arrival: Ambulatory Limitations: No Limitations Description of Symptoms (Recalled from ER Triage Doc. by RN): PT REPORTS CHEST PAIN/FLUTTER THAT BEGAN ABOUT 45 MINUTES PRIOR TO ARRIVAL. DIFFICULTY CATCHING HER BREATH, STATES SHE FEELS A LUMP IN HER THROAT REPORTS HX OF A-FIB History of Present Illness HPI narrative: States that she was at work 45 minutes prior to arrival when she began feeling her heart racing, a lump in her throat, tightness in her chest, shortness of breath. States that she has had previous similar symptoms. States she has been told that she has atrial fibrillation. She is not on anticoagulation. States that she had a heart cath by Dr. Negron at [facility] less than 2 years ago which showed no blockages. She does not currently see a creative project manager. She is on metoprolol, states that she only takes it at night, although review of medications indicates that she is prescribed this medication to be taken twice daily. No leg pain or swelling. No recent illness. Recent travel to [place] by car 18 of February. Related Data Home Medications Medication Instructions Recorded Confirmed evolocumab 140 mg/mL subcutaneous 140 mg SQ Q2W Cholesterol 06/21/20 12/11/21 pen injector (Candace Cisneros) famotidine 20 mg tablet 20 mg PO DAILY 12/11/21 12/11/21 Previous Rx's Medication Instructions Recorded albuterol sulfate 90 mcg/actuation 2 inh inhalation Q6H PRN SOA #1 ea 08/15/21 breath activated powder inhaler atorvastatin 80 mg tablet 80 mg PO HS Cholesterol #90 tabs 08/15/21 furosemide 20 mg tablet 20 mg PO DAILY SWELLING #90 tabs 08/15/21 metoprolol tartrate 50 mg tablet 50 mg PO BID BP #180 tabs 08/15/21 sertraline 50 mg tablet See Rx Instruction
--- NOTE | 2022-03-19 10:40 | PC.NURSE ---
RADIOLOGY AT BEDSIDE
--- NOTE | 2022-03-19 10:45 | PC.NURSE ---
RETURNED FROM XR
--- NOTE | 2022-03-19 10:48 | PC.NURSE ---
1048 ED MD AT BEDSIDE FOR EVALUATION
[2022-03-19 10:50] LABS: Basophils # 0.1 K/mm3 (0-0.2); Basophils % 0.8 % (0.1-2.0); Eosinophils # 0.4 K/mm3 (0.0-0.4); Eosinophils % 4.7 % (0.1-12.0); Hematocrit 43.8 % (37.0-47.0); Hemoglobin 14.3 g/dL (12.2-16.2); Lymphocytes # 2.3 K/mm3 (0.7-4.5); Lymphocytes % 30.5 % (10-50); Mean Corpuscular HGB Conc 32.7 g/dL (31.8-35.4); Mean Corpuscular Hemoglobin 31.3 pg (27.0-31.2); Mean Corpuscular Volume 95.7 fl (81-99); Mean Platelet Volume 7.1 fl (7.4-10.4); Monocytes # 0.4 K/mm3 (0.1-1.0); Monocytes % 5.1 % (1.7-9.3); Neutrophils # 4.4 K/mm3 (1.8-7.8); Platelet Count 270 K/mm3 (142-424); Red Blood Count 4.58 M/mm3 (4.20-5.40); Red Cell Distribution Width 12.9 % (11.5-17.5); White Blood Count 7.5 K/mm3 (4.8-10.8)
[2022-03-19 10:55] LABS: Chloride 105 mmol/L (98-107); Potassium 3.6 mmoL/L (3.5-5.1); Sodium 140 mmol/L (136-145)
[2022-03-19 10:58] LABS: Anion Gap 11.6 mEq/L (5-15); Blood Urea Nitrogen 5 mg/dl (7-17); Carbon Dioxide 27 mmol/L (22.0-30.0); Creatinine Clearance Estimated 142 mL/min (50-200); Estimated Glomerular Filt Rate 91 ml/min (>60); GFR (African American) 111 ML/MIN (>60)
[2022-03-19 10:59] LABS: Calcium 9.9 mg/dl (8.4-10.2); Glucose 107 mg/dl (74-100)
--- NOTE | 2022-03-19 11:00 | PC.NURSE ---
Lab aware of D-Dimer add on, spoke with Emmy
[2022-03-19 11:14] LABS: Troponin I < 0.01 ng/ml (0.00-0.034)
[2022-03-19 11:15] LABS: D-Dimer 0.49 ug/mL (0.0-0.5)
--- NOTE | 2022-03-19 11:30 | PC.NURSE ---
1130 ROUNDED ON PT, REPORTS FEELING JITTERY MADE AWARE. NO NEW ORDERS
--- NOTE | 2022-03-19 12:08 | PC.NURSE ---
ED MD AT BEDSIDE TO DISCUSS POC WITH PT
--- NOTE | 2022-03-19 12:12 | PC.NURSE ---
pt ambulatory to restroom without any complications at this time
[2022-03-19 13:00] LABS: Coronavirus 19, PCR Not Detected (NotDetected); Influenza A, PCR Not Detected (NotDetected); Influenza B, PCR Not Detected (NotDetected)
--- NOTE | 2022-03-19 13:02 | PC.NURSE ---
ROUNDED ON PT AT THIS TIME, PT TEXTING ON PHONE. NO NEEDS AT THIS TIME
--- NOTE | 2022-03-19 13:29 | PC.NURSE ---
lab is aware of 2nd trop
--- NOTE | 2022-03-19 13:40 | PC.NURSE ---
Lab at BS to draw 2nd troponin
[2022-03-19 14:24] LABS: Troponin I < 0.01 ng/ml (0.00-0.034)
== END 2022-03-19 15:00 | disposition home or self-care (01) ==
PROVIDERS: Emergency Provider Emergency Medicine; PCP Emergency Medicine
DX: R00.2 Palpitations (principal); R00.0 Tachycardia, unspecified; I10 Essential (primary) hypertension; Z88.0 Allergy status to penicillin; Z88.1 Allergy status to other antibiotic agents; Z72.0 Tobacco use; F19.11 Other psychoactive substance abuse, in remission
CPT/HCPCS: 36415; 71046; 80048; 84484; 85025; 85378; 93005; 99283; C9803; U0003; U0005

== ENCOUNTER → 2022-04-02 12:53 | Outpatient (CLI) | payer OTHER, SELFPAY | PROVIDERS: PCP Emergency Medicine; Visit Provider Physician Assistant | DX: R00.2 Palpitations (principal) | CPT/HCPCS: 93225; 93226 ==

== ENCOUNTER → 2022-04-04 09:08 | Outpatient (CLI) | payer OTHER, SELFPAY ==
--- NOTE | 2022-04-04 09:09 | CA_ITS ---
APPROVED REPORT Exam: Exercise Treadmill Technologist: Nadia Sommers, Ht: 5 ft 5 in Wt: 191 lbs BSA: 1.94 m2 HR: 82 bpm BP: 137/90 mmHg Medical History Medications: Omeprazole,,,,, Metoprolol,,,,, Gabapentin,,,,, Atorvastatin,,,,, PERCOCET,,,,, Albuterol,,,,, Famotidine,,,,, Sertraline,,,,, ADIPEX,,,,, Vistaril,,,,, Zofran,,,,, Repatha,,,,, Stress Test Details Test: Kota HR Resting HR: 93 bpm Max Heart Rate (APMHR): 177.696014 bpm Max HR Achieved: 142 bpm Target HR (85% APMHR): 150.879630 bpm % of APMHR: 80.23 Recovery HR: 85 bpm BP Resting BP: 147.0/87.0 mmHg Max BP: 180.0/92.0 mmHg Recovery BP: 139.0/79.0 mmHg ECG Resting ECG: NSR, rightward axis Clinical Exercise duration: 06:29 min Highest Stage Achieved: Exercise capacity: 7.0 METs Stress ECG Conclusion Exercised 6:29 into stage III of Kota Protocol. Max HR: 142 % of PM: 80% Max BP: 180/92 METs: 7.0 Test stopped due to: SOA Symptoms: SOA. No CP. Arrhythmias/Ectopy: None. ST-T Changes: 1mm horizontal ST depression laterally & 0.5mm inferiorly. Conclusion: Equivocal EKG changes without CP. GXT only (no imaging) Test Summary REST . . . . . . . Sitting REST . . . . . . . Standing REST 03:02 0.0 0.0 93 . 147/ 87 . . Stage 1 01:00 10.0 1.7 105 . . . . Stage 1 02:00 10.0 1.7 120 . . . . Stage 1 03:00 10.0 1.7 122 . 170/ 92 . . Stage 2 01:00 12.0 2.5 126 . . . . Stage 2 02:00 12.0 2.5 128 . . . . Stage 2 03:00 12.0 2.5 131 . 180/ 92 . . Stage 3 00:29 14.0 3.4 142 . . . Stop exercise at 06:29 RECOVERY 01:00 0.0 0.0 124 . . . . RECOVERY 02:00 0.0 0.0 98 . 166/ 96 . . RECOVERY 03:00 0.0 0.0 86 . 166/ 96 . . RECOVERY 04:00 0.0 0.0 84 . 148/ 84 . . RECOVERY 05:00 0.0 0.0 86 . 139/ 79 . . RECOVERY 05:22 0.0 0.0 84 . 139/ 79 . . Electronically signed by : Barrett Giordano MD 04/04/2022 19:24:43
--- NOTE | 2022-04-04 09:09 | CA_ITS ---
APPROVED REPORT EXAM: Comprehensive 2D, Doppler, and color-flow Echocardiogram Advisory Intern: SARY Lainez, RVS Ht: 5 ft 5 in Wt: 191lbs BSA: 1.94 BP: 143/97 mmHg Indications: cp, Palpitations, HLD, Smoker Echo Enhancing Agent Comments: Poor acoustic windows throughout exam 2D Dimensions LVDs 2.69 cm LA Volume 40.90 mL Left Atrium 2.68 cm LA Volume Index 21.10 mL/m2 (M/F) 16-34 LVOT 2.04 cm (M/F) 1.5-2.5 M-Mode Dimensions RVDd 2.00 cm (0.9-2.6) LA Diam 3.09 cm (1.9-4.0) LVDd 3.68 cm (3.5-5.7) Ao Diam 2.88 cm (2.0-3.7) LVDs 2.33 cm (3.5-5.7) IVSd 0.93 cm (0.6-1.1) PWd 0.72 cm (0.6-1.1) EF (Teich) 67.40% EPSs 0.53 cm FS 36.70% EDV (Teich) 57.40 mL TAPSE 2.60 (<1.7) ESV (Teich) 18.70 mL LV Diastology E Decel Time 223.00 (160-240 msec) E/A Ratio 2.06 MED E' 10.60 (< 7 cm/sec) MED A' 5.70 cm/s E'/MED E' Ratio 8.76 (>14) LAT E' 13.10 (<10 cm/sec) LAT A' 8.60 cm/s E/LAT E' Ratio 7.09 (>14) Aortic Valve LVOT Max 126.00 (70-110 cm/s) LVOT VTI 25.65 cm AoV Peak Garth. 187.00 (50-130 cm/s) AO Peak GR. 14.00 mmHg AO Mean GR. 6.80 (<5 mmHg) AO VTI 35.62 (18-25 cm) KIMBER (VTI) 2.35 (2.5-4.5 cm2) Mitral Valve MV A Velocity 45.00 (40-130 cm/s) E/A Ratio 2.06 MV Decel. Time 223.00 (160-240 ms) MV PHT 67.00 ms Pulmonary Valve PV Peak Velocity 80.00 (50-150 cm/s) Left Ventricle Left atrium normal size, left ventricle is normal size, there is no concentric left ventricular hypertrophy, estimated ejection fraction 55% with no regional wall motion abnormality, diastolic parameters are within normal range. Right Ventricle Right atrium and right ventricle are normal size and contractility. Aortic Valve Aortic valve is grossly normal there is no aortic stenosis aortic insufficiency. Mitral Valve Mitral valve grossly normal, there is no mitral regurgitation. Tricuspid Valve Tricuspid valve grossly normal, there is no tricuspid regurgitation. Pulmonic Valve Pulmonic valve is poorly visualized. Great Vessels Aortic root is normal size. Inferior vena cava is normal size with normal inspiratory collapse. Pericardium No significant pericardial effusion noted. Conclusion 1. Normal left ventricular size, preserved left ventricular systolic function, estimated ejection fraction 55% with no regional wall motion abnormality, diastolic parameters are within normal range. 2. No significant pericardial effusion noted. 3. Inferior vena cava is normal size with normal inspiratory collapse. Electronically signed by : Nemesio Gaston MD 04/05/2022 10:34:10
== END ==
LOC: RT 09:09
PROVIDERS: PCP Emergency Medicine; Visit Provider Nurse Practitioner Family
DX: R07.9 Chest pain, unspecified (principal); R00.2 Palpitations; E78.5 Hyperlipidemia, unspecified; F41.9 Anxiety disorder, unspecified; I10 Essential (primary) hypertension
CPT/HCPCS: 93017; 93306

== ENCOUNTER → 2022-04-05 07:55 | Outpatient (CLI) | payer OTHER, SELFPAY ==
--- NOTE | 2022-04-05 07:55 | CA_ITS ---
FINAL REPORT TECHNIQUE: Grayscale, color Doppler and duplex Doppler ultrasound of the kidneys, aorta and renal arteries was performed. Multiple velocities were measured. CLINICAL HISTORY: HTN,SMOKER FINDINGS: Aorta velocity: 194 cm/sec Right kidney: 13.1 cm. No evidence of hydronephrosis or mass. Right intrarenal RI: 0.56 Right renal artery velocity: 186 cm/sec. Right RAR (Renal artery-Aortic Ratio): 0.96 Left Kidney: 10.5 cm. No evidence of hydronephrosis or mass. Left intrarenal RI: 0.64 Left renal artery velocity: 174 cm/sec. Left RAR (Renal Artery-Aortic Ratio): IMPRESSION: Less than 60% right renal artery stenosis. No significant left renal artery stenosis. Due to generalized increased velocities in the aorta CTA may be of value. Reviewed, Interpreted and Dictated by Salas Oates III, MD Transcribed by Yobani Padron Authenticated and . [facility]
== END ==
LOC: RT 07:55
PROVIDERS: PCP Emergency Medicine; Visit Provider Physician Assistant
DX: I10 Essential (primary) hypertension (principal)
CPT/HCPCS: 93976

== ENCOUNTER → 2022-05-21 13:39 | Outpatient (CLI) | payer OTHER, SELFPAY ==
[2022-05-21 14:06] LABS: Amphetamine/Metha Screen,Urine Positive ng/ml (<1000); Barbiturates Screen,Urine Negative ng/ml (<200)
[2022-05-21 14:07] LABS: Benzodiazepines Screen,Urine Negative ng/ml (<200)
[2022-05-21 14:08] LABS: Cannabinoid Screen,Urine Negative ng/ml (<50); Cocaine Screen,Urine Positive ng/ml (<300)
[2022-05-21 14:09] LABS: Methadone Screen,Urine Negative ng/ml (<300)
[2022-05-21 14:10] LABS: Opiate Screen,Urine Negative ng/ml (<300)
[2022-05-21 14:12] LABS: Phencyclidine Screen,Urine Negative ng/ml (<25)
== END ==
LOC: LAB.DROPOF 13:40
PROVIDERS: PCP Emergency Medicine; Visit Provider Emergency Medicine
DX: Z79.899 Other long term (current) drug therapy (principal)
CPT/HCPCS: 80305

== ENCOUNTER 2022-06-16 17:55 | Emergency (ER) | payer OTHER, SELFPAY ==
[2022-06-16 18:42] VITALS: BP 152/102; PULSE 96; RESP 18; TEMP 36.9; O2SAT 97; BMI 33.8
--- NOTE | 2022-06-16 19:04 | HMH.EDGENADL ---
Discharge Plan Disposition Patient Disposition: Home, Self-Care Condition: Good Prescriptions Prescriptions: New prednisone 20 mg tablet 20 mg PO BID 7 Days Qty: 14 0RF metaxalone 800 mg tablet 800 mg PO TID PRN (Reason: muscle pain) Qty: 20 0RF No Action Repatha SureClick 140 mg/mL pen injector 140 mg SQ Q2W albuterol sulfate 90 mcg/actuation aerosol powdr breath activated 2 inh INHALATION Q6H PRN (Reason: SOA) Qty: 1 0RF famotidine 20 mg tablet 20 mg PO DAILY omeprazole 20 mg capsule,delayed release(DR/EC) 40 mg PO DAILY Qty: 60 3RF hydroxyzine pamoate [Vistaril] 25 mg capsule 25 mg PO TID PRN (Reason: itching) Qty: 60 0RF metoprolol tartrate 100 mg tablet 100 mg PO BID Qty: 180 3RF furosemide 20 mg tablet See Rx Instructions .ROUTE .COMPLEX Qty: 90 1RF Dose Instruction: TAKE ONE TABLET BY MOUTH EVERY DAY FOR swelling Rx Instructions: TAKE ONE TABLET BY MOUTH EVERY DAY FOR swelling atorvastatin 80 mg tablet See Rx Instructions .ROUTE .COMPLEX Qty: 90 1RF Dose Instruction: TAKE ONE TABLET BY MOUTH EVERY DAY AT BEDTIME FOR cholesterol Rx Instructions: TAKE ONE TABLET BY MOUTH EVERY DAY AT BEDTIME FOR cholesterol sertraline 50 mg tablet See Rx Instructions .ROUTE .COMPLEX Qty: 90 1RF Dose Instruction: TAKE ONE TABLET BY MOUTH EVERY DAY Rx Instructions: TAKE ONE TABLET BY MOUTH EVERY DAY Referrals Follow up/Referrals: Casey Acosta MD [Primary Care Provider] - See instructions Discharge ED Provider: Markos Shukla General Adult HPI General Stated complaint: Back and leg pain Time Seen by Provider: 06/16/22 18:56 History of Present Illness HPI narrative: The patient presents with a 3-day history of pain in the low back radiating into the buttock and the lateral aspect of the right thigh. She had similar symptoms in the past but not of the severity. She gives a history of sciatica. She states pain is worse with movement. She denies bowel or bladder incontinence or weakness or numbness to the lower extremities Related Data Home Medications Medication Instructions Recorded Confirmed evolocumab 140 mg/mL subcutaneous 140 mg SQ Q2W Cholesterol 06/21/20 05/21/22 pen injector (Repatha SureClick) famotidine 20 mg tablet 20 mg PO DAILY 12/11/21 05/21/22 Previous Rx's Medication Instructions Recorded albuterol sulfate 90 mcg/actuation 2 inh inhalation Q6H PRN SOA #1 ea 08/15/21 breath activated powder inhaler omeprazole 20 mg capsule,delayed 40 mg PO DAILY TAKE 2 TABS EVERY 12/11/21 release MORNING #60 caps hydroxyzine pamoate 25 mg capsule 25 mg PO TID PRN itching #60 caps 03/20/22 (Vistaril) metoprolol tartrate 100 mg tablet 100 mg PO BID #180 tabs 04/02/22 atorvastatin 80 mg tablet See Rx Instructions .Route 05/29/22 .COMPLEX #90 tabs furosemide 20 mg tablet See Rx Instructions .Route 05/29/22 .COMPLEX #90 tabs sertraline 50 mg tablet See Rx Instructions .Route 05/29/22 .COMPLEX #90 tabs metaxalone 800 mg tablet 800 mg PO TID PRN muscle pain #20 06/16/22 tabs prednisone 20 mg tablet 20 mg PO BID 7 days #14 tabs 06/16/22 Allergies Allergy/AdvReac Type Severity Reaction Status Date / Time penicillin G [PENICILLIN G] Allergy Mild Unknown Verified 05/21/22 11:13 allergy reaction doxycycline Allergy Unknown Rash Verified 05/21/22 11:13 [facility] Social History Smoking Status: Current every day smoker tobacco type: cigarettes packs per day: 1 second hand exposure: No alcohol intake: never substance use type: former substance user and prescription drug current occupational status: employed Travel in the last 8 weeks: None household members: spouse housing: house 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
[2022-06-16 20:12] VITALS: BP 152/78; PULSE 89; RESP 18; TEMP 36.9; O2SAT 97
== END 2022-06-16 20:14 | disposition home or self-care (01) ==
PROVIDERS: Emergency Provider Emergency Medicine; PCP Emergency Medicine
DX: M54.40 Lumbago with sciatica, unspecified side (principal); F17.210 Nicotine dependence, cigarettes, uncomplicated; M79.10 Myalgia, unspecified site; R06.02 Shortness of breath; Z79.51 Long term (current) use of inhaled steroids; Z79.52 Long term (current) use of systemic steroids; Z79.899 Other long term (current) drug therapy; Z88.0 Allergy status to penicillin; Z88.8 Allergy status to other drugs, medicaments and biological substances
CPT/HCPCS: 96372; 99284

== ENCOUNTER → 2022-06-28 18:30 | Outpatient (CLI) | payer OTHER, SELFPAY ==
[2022-06-28 18:22] LABS: Basophils # 0.1 K/mm3 (0-0.2); Basophils % 0.8 % (0.1-2.0); Eosinophils # 0.3 K/mm3 (0.0-0.4); Eosinophils % 2.3 % (0.1-12.0); Hematocrit 44.1 % (37.0-47.0); Hemoglobin 14.1 g/dL (12.2-16.2); Lymphocytes # 3.7 K/mm3 (0.7-4.5); Lymphocytes % 25.8 % (10-50); Mean Corpuscular HGB Conc 32.1 g/dL (31.8-35.4); Mean Corpuscular Hemoglobin 31.8 pg (27.0-31.2); Mean Corpuscular Volume 99.3 fl (81-99); Mean Platelet Volume 8.5 fl (7.4-10.4); Monocytes # 0.7 K/mm3 (0.1-1.0); Monocytes % 4.6 % (1.7-9.3); Neutrophils # 9.4 K/mm3 (1.8-7.8); Neutrophils % 66.5 % (37.0-80.0); Platelet Count 276 K/mm3 (142-424); Red Blood Count 4.44 M/mm3 (4.20-5.40); Red Cell Distribution Width 13.9 % (11.5-17.5); White Blood Count 14.2 K/mm3 (4.8-10.8)
== END ==
LOC: LAB.DROPOF 18:31
PROVIDERS: PCP Emergency Medicine; Visit Provider Emergency Medicine
DX: D72.829 Elevated white blood cell count, unspecified (principal)
CPT/HCPCS: 85025

== ENCOUNTER → 2022-07-05 10:23 | Outpatient (CLI) | payer OTHER, SELFPAY ==
--- NOTE | 2022-07-05 10:24 | MR_ITS ---
FINAL REPORT CLINICAL HISTORY: lower back pain with right leg pain , numbness and tingling x 3 weeks FINDINGS: Multiplanar MR imaging of the lumbar spine was performed without contrast. On the sagittal T2-weighted images, disc degeneration is seen throughout. There are mild endplate changes at several levels. There is mild retrolisthesis of L1 on L2, L2 on L3, L3 on L4 and L4 on L5. There is no evidence of fracture. No bony mass is identified. The conus is seen at approximately the L1 level and has an unremarkable appearance. T11-12: Annular disc bulge with osteophytes and mild bilateral neural foraminal narrowing. T12-L1: No significant central canal stenosis or neural foraminal narrowing. L1-2: Annular disc bulge with facet arthropathy mild bilateral neural foraminal narrowing. L2-3: Annular disc bulge with facet arthropathy mild bilateral neural foraminal narrowing. L3-4: Annular disc bulge with facet arthropathy and small left paracentral disc protrusion. There is mild right and moderate left neural foraminal narrowing. L4-5: Annular disc bulge with right foraminal disc protrusion. There is moderate right and mild left neural foraminal narrowing. L5-S1: Annular disc bulge with facet arthropathy and osteophytes. There is a right foraminal disc protrusion with right S1 nerve root impingement. There is moderate right and mild left neural foraminal narrowing. Mild spurring is noted of the SI joints. IMPRESSION: Multilevel degenerative disc disease with right foraminal disc protrusion at L5-S1, right S1 nerve root impingement and moderate right neural foraminal narrowing. Reviewed, Interpreted and Dictated by Salas Oates III, MD Transcribed by Nely Garsia Authenticated and [facility]
== END ==
LOC: RAD 10:24
PROVIDERS: PCP Emergency Medicine; Visit Provider Emergency Medicine
DX: M54.50 Low back pain, unspecified (principal); M54.9 Dorsalgia, unspecified
CPT/HCPCS: 72148; 76376

== ENCOUNTER → 2022-07-15 06:57 | Outpatient (CLI) | payer OTHER, SELFPAY ==
--- NOTE | 2022-07-15 06:58 | CA_ITS ---
APPROVED REPORT Exam: Pharmacologic Technologist: Marybeth Loco Ht: 5 ft 3 in Wt: 201 lbs BSA: 1.94 m2 HR: 91 bpm BP: 124/67 mmHg Medical History Medications: Omeprazole,,,,, Trazadone,,,,, Gabapentin,,,,, Metoprolol Tartrate,,,,, Atorvastatin,,,,, PERCOCET,,,,, Albuterol,,,,, Famotidine,,,,, Prednisone,,,,, KloNOPIN,,,,, Metaxalone,,,,, Vistaril,,,,, Stress Test Details Test: LEXISCAN HR Resting HR: 87 bpm Max Heart Rate (APMHR): 177.188401 bpm Max HR Achieved: 106 bpm Target HR (85% APMHR): 150.333689 bpm % of APMHR: 59.89 Recovery HR: 93 bpm BP Resting BP: 124.0/67.0 mmHg Max BP: 148.0/79.0 mmHg Recovery BP: 125.0/70.0 mmHg ECG Resting ECG: Normal sinus rhythm, rightward axis, ST abnormalities inferiorly. Clinical Exercise duration: 04:00 min Highest Stage Achieved: Exercise capacity: 1.0 METs Stress ECG Conclusion Symptoms: Chest tightness, shortness of air, head and stomach discomfort. Arrhythmias/Ectopy: None ST-T Changes: Compared to baseline EKG there are no significant changes. Conclusion: Unremarkable Lexiscan stress. Myoview images reported separately. Test Summary REST . . . . . . . Sitting REST 03:45 . . 87 . 124/ 67 . . Stage 1 01:00 . . 105 . . . . Stage 2 01:00 . . 98 . . . . Stage 3 01:00 . . 97 . 115/ 81 . . Stage 4 01:00 . . 96 . 115/ 79 . Stop exercise at 04:00 RECOVERY 01:00 . . 93 . . . . RECOVERY 02:00 . . 89 . 115/ 76 . . RECOVERY 03:00 . . 94 . 125/ 70 . . RECOVERY 03:20 . . 90 . 125/ 70 . . Electronically signed by : Nemesio Gaston MD 07/15/2022 14:58:43
--- NOTE | 2022-07-15 06:58 | NM_ITS ---
APPROVED REPORT Exam: Nuclear Stress Test Indication: HX NM, HTN, HYPERLIPIDEMIA, TOB USE, FM HX, C.P., SOB, FATIGUE Patient Location: Outpatient Stress Tech: Marybeth Loco CT Tech:Whit Bryant ILENE RT (R)(N)(M) Ht: 5 ft 3 in Wt: 201 lbs Bra Size: C HR: 91 bpm BP: 124/67 mmHg BSA: 1.94 m2 TID: 1.04 BMI: 35.6 History: HX NM, HTN, HYPERLIPIDEMIA, TOB USE, FM HX, C.P., SOB, FATIGUE Procedure: Patient received a 0.4 mg of intravenous Lexiscan, resting heart rate 91 bpm, resting blood pressure 124/67 mmHg, with Lexiscan maximum heart rate achived was 106 bpm which is Less than 85 % of the maximum predicted heart rate and blood pressure was 148/79 mmHg. With Lexiscan, patient denied any complaint of chest pain. Electrocardiogram Electrocardiogram shows sinus rhythm, with Lexiscan less than 1.[address] segment depression noted from the baseline EKG. The EKG portion of the Lexiscan is nondiagnostic. Cardiac Stress and Resting SPECT Images: Cardiac Stress and Resting SPECT images were obtained using technetium 99m Myoview 29.7 mCi stress and 9.87 mCi at rest. Gated SPECT analysis of segmental wall motion and calculation of the ejection fraction also done. Prone images were also obtained. Cardiac stress and rest respectively show mild fixed defect in the anterior wall with normal contractility in the gated SPECT is likely secondary to soft tissue attenuation, no reversible ischemia seen, computer derived ejection fraction is 59% with no regional wall motion abnormality, right ventricle is normal size and contractility. Conclusion: 1. The EKG portion of the Lexiscan is nondiagnostic. 2. No scintigraphic evidence of reversible ischemia seen, computer derived ejection fraction is 59% with no regional wall motion abnormality, right ventricle is normal size and contractility. 3. Likely normal Lexiscan Myoview study. Electronically signed by : Nemesio Gaston MD 07/15/2022 15:03:08
== END ==
PROVIDERS: PCP Emergency Medicine; Visit Provider Nurse Practitioner Family
DX: R07.9 Chest pain, unspecified (principal); I10 Essential (primary) hypertension; E78.5 Hyperlipidemia, unspecified; F41.9 Anxiety disorder, unspecified; E66.9 Obesity, unspecified; Z68.36 Body mass index [BMI] 36.0-36.9, adult; Z72.0 Tobacco use
CPT/HCPCS: 78452; 93017; A9502; J2785

== ENCOUNTER → 2022-07-16 06:18 | Outpatient (CLI) | payer OTHER, SELFPAY ==
[2022-07-16 19:28] LABS: Barbiturates Screen,Urine Negative ng/ml (<200); Benzodiazepines Screen,Urine Negative ng/ml (<200)
[2022-07-16 19:29] LABS: Amphetamine/Metha Screen,Urine Negative ng/ml (<1000); Methadone Screen,Urine Negative ng/ml (<300)
[2022-07-16 19:30] LABS: Cannabinoid Screen,Urine Negative ng/ml (<50)
[2022-07-16 19:31] LABS: Cocaine Screen,Urine Negative ng/ml (<300)
[2022-07-16 19:32] LABS: Opiate Screen,Urine Positive ng/ml (<300); Phencyclidine Screen,Urine Negative ng/ml (<25)
== END ==
LOC: LAB.DROPOF 07-17 06:19
PROVIDERS: PCP Emergency Medicine; Visit Provider Emergency Medicine
DX: Z79.899 Other long term (current) drug therapy (principal)
CPT/HCPCS: 80305

== ENCOUNTER → 2022-07-24 11:01 | Outpatient (POV) | payer OTHER, SELFPAY ==
[2022-07-24 11:14] VITALS: BP 128/75; PULSE 94; RESP 18; O2SAT 96; BMI 35.5
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
== END ==
PROVIDERS: PCP Emergency Medicine; Visit Provider Nurse Practitioner Family
DX: M51.16 Intervertebral disc disorders with radiculopathy, lumbar region (principal); M25.559 Pain in unspecified hip; M79.604 Pain in right leg; G89.4 Chronic pain syndrome
CPT/HCPCS: 99202; G0463

== ENCOUNTER → 2022-07-30 12:38 | Outpatient (CLI) | payer OTHER, SELFPAY ==
--- NOTE | 2022-07-30 12:42 | XR_ITS ---
FINAL REPORT CLINICAL HISTORY: leg pain FINDINGS: Two views of the right tibia-fibula demonstrate no acute fracture or dislocation. The joint spaces appear normal. The visualized bony structures are well aligned. No soft tissue abnormality is seen. IMPRESSION: No acute process. Reviewed, Interpreted and Dictated by Salas Oates III, MD Transcribed by Yobani Padron Authenticated and [facility]
--- NOTE | 2022-07-30 12:42 | XR_ITS ---
FINAL REPORT CLINICAL HISTORY: back pain FINDINGS: AP and lateral views were obtained. There is no acute fracture. There is no malalignment. There are mild degenerative changes. There is disc space narrowing at L5-S1. There is mild vascular calcification. IMPRESSION: Mild degenerative disc disease at L5-S1. Reviewed, Interpreted and Dictated by Salas Oates III, MD Transcribed by Yobani Padron Authenticated and [facility]
== END ==
LOC: RAD 12:39
PROVIDERS: PCP Emergency Medicine; Visit Provider Orthopaedic Surgery
DX: M54.50 Low back pain, unspecified (principal); M79.604 Pain in right leg
CPT/HCPCS: 72100; 73590

== ENCOUNTER → 2022-08-02 11:16 | Outpatient (POV) | payer OTHER, SELFPAY ==
[2022-08-02 12:31] VITALS: BP 136/88; PULSE 98; RESP 18; O2SAT 98; BMI 36.6
--- NOTE | 2022-08-02 13:11 | EXP.PAIN.SOA ---
[facility] Pain Management SOAP Note Subjective:: Patient is a pleasant 42-year-old female who presents today for a denial of a right transforminal epidural. We are treating the patient for hip pain, lumbar back pain, degenerative disc disease with lumbar radicular pain, right leg pain and chronic pain disorder. Patient rates her pain a 5 out of 10 today. Patient denies any new trauma or injury. Patient denies any change to the location or type of pain she experiences. Patient continues to have significant pain in her low back that radiates into her right leg. Patient describes her pain as constant throbbing, aching, uncomfortable sensation that is worse with increased activity. At last visit we were planning for a transforaminal epidural however insurance has denied this due to a lack of 6 weeks of physical therapy. Patient is currently prescribed oxycodone with acetaminophen 325 mg / 10 mg 3 times a day, clonazepam 0.5 mg twice a day, gabapentin 600 mg 3 times a day, by her family provider. Patient denies any side effects from these medications. Her Eric is [phone] it was reviewed and appropriate. Review of Systems: General: No recent weight changes, no fever, no sleep disturbances Respiratory: No cough, no shortness of air, no recurring pulmonary infections Cardiovascular/peripheral vascular: No chest pain, no palpitations, no edema, no shortness of breath Gastrointestinal: No new onset incontinence, normal bowel movements reported Genitourinary: No new onset incontinence Musculoskeletal: Low back pain right leg pain Psychiatric: [Normal mood/affect] Neurological: [Denies weakness in extremities], [denies balance issues] Objective:: Physical Exam: General: Alert and oriented x3, no acute distress, pleasant and cooperative Lungs: Respirations even and unlabored, symmetrical chest expansion Eyes: PERRL Musculoskeletal: Flexion and extension of lumbar [spine] somewhat guarded secondary to pain, [antalgic gait noted] Neurological: Speech clear, no gross sensory deficit ORT score updated with low risk. Assessment:: Degenerative disc disease with lumbar radiculopathy symptoms, low back pain, right leg pain Plan:: Patient continues to have significant pain in her low back that radiates into her right leg. Patient did have limited range of motion of her lumbar spine. We will send the patient for evaluation and treatment by physical therapy. I have counseled the patient that she may benefit from a neurosurgeon consult. He is agreeable to plan patient will follow-up in 1 month. Patient has been instructed to contact the clinic with any concerns before the next appointment. Dr. Lazaro has reviewed this note and agrees with this plan of care. This note was dictated using voice recognition software and make contain errors or omissions. [facility] Disclaimer: The information contained in this section may have been updated after the patient was seen, as this information can be updated by other users. 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
== END ==
PROVIDERS: PCP Emergency Medicine; Visit Provider Nurse Practitioner Family
DX: M51.16 Intervertebral disc disorders with radiculopathy, lumbar region (principal); M79.604 Pain in right leg; F17.210 Nicotine dependence, cigarettes, uncomplicated
CPT/HCPCS: 99212; G0463

== ENCOUNTER → 2022-08-30 16:46 | Outpatient (CLI) | payer OTHER, SELFPAY ==
--- NOTE | 2022-08-30 16:46 | MM_ITS ---
PROCEDURE INFORMATION: Exam: MG Bilateral Screening 3D Mammography Exam date and time: 08/30/2022 4:38 PM Age: 42 years old Clinical indication: Screening mammogram TECHNIQUE: Imaging protocol: Bilateral Screening tomosynthesis and 2D mammography including computer-aided detection (CAD) when performed. COMPARISON: 1. MG MM SCREENING MAMMOGRAM 08/11/2019 9:06 AM 2. MG DMSB DIG MAMM-SCREEN DAVID 10/05/2014 1:20 PM 3. MG DMDB DIG MAMM-DX DAVID 04/05/2014 1:02 PM 4. MG DMSB DIG MAMM-SCREEN DAVID 10/22/2013 10:12 AM FINDINGS: MAMMOGRAPHY: Breast composition: There are scattered areas of fibroglandular density. Mass: None. Architectural distortion: No new or suspicious architectural distortion. Calcifications: No new or suspicious calcifications are present Asymmetric density: No new or suspicious asymmetric density is present Skin thickening: None. Axillary adenopathy: None. IMPRESSION: No mammographic evidence of malignancy. Recommend annual screening mammography unless otherwise clinically indicated. ASSESSMENT: BI-RADS category 1: Negative
== END ==
PROVIDERS: PCP Emergency Medicine; Visit Provider Emergency Medicine
DX: Z12.31 Encounter for screening mammogram for malignant neoplasm of breast (principal)
CPT/HCPCS: 77063; 77067

== ENCOUNTER → 2022-09-02 10:08 | Outpatient (POV) | payer OTHER, SELFPAY ==
--- NOTE | 2022-09-02 11:27 | EXP.PAIN.SOA ---
[facility] Pain Management SOAP Note Subjective:: Patient is a pleasant 42-year-old who presents today for follow-up. We are currently treating the patient for hip pain, low back pain, degenerative disc disease of lumbar spine with lumbar radiculopathy symptoms, right leg pain, chronic pain. Today the patient rates her pain a 7 out of 10. Patient denies any new trauma or injury. Patient does states she continues to experience significant pain in her low back with radiating symptoms into her right leg as well as right shoulder pain and numbness. We did previously try to order the patient a right transforaminal epidural however this was denied by insurance due to not having 6 weeks physical therapy. Patient is still seeing physical therapy and states that she has not noticed significant improvement at this time. Patient is currently managed with gabapentin 600 mg 3 times a day, Percocet 10 mg 3 times a day and clonazepam 0.5 mg twice a day from her primary care doctor. Patient denies any side effects from these medications. Patient is currently scheduled to see Dr. Chavez on September 10. Her Eric is [phone]. Its been reviewed and appropriate. Review of Systems: General: No recent weight changes, no fever, no sleep disturbances Respiratory: No cough, no shortness of air, no recurring pulmonary infections Cardiovascular/peripheral vascular: No chest pain, no palpitations, no edema, no shortness of breath Gastrointestinal: No new onset incontinence, normal bowel movements reported Genitourinary: No new onset incontinence Musculoskeletal: Low back pain, right leg pain, right shoulder pain Psychiatric: [Normal mood/affect] Neurological: [Denies weakness in extremities], [denies balance issues] Objective:: Physical Exam: General: Alert and oriented x3, no acute distress, pleasant and cooperative Lungs: Respirations even and unlabored, symmetrical chest expansion Eyes: PERRL Musculoskeletal: Flexion and extension of right shoulder, lumbar [spine] somewhat guarded secondary to pain, [antalgic gait noted] Neurological: Speech clear, no gross sensory deficit Assessment:: Degenerative disc disease of lumbar spine with lumbar radiculopathy symptoms, hip pain, low back pain, right leg pain, chronic pain, right shoulder pain Plan:: Patient continues to experience significant pain in her low back with radicular symptoms into her right leg as well as her right shoulder. Patient does have limited range of motion of her right shoulder and lumbar spine. I have discussed with the patient that we will continue her physical therapy for the full 6 weeks and then resubmit to insurance for her right transforaminal epidural steroid injection. I will order the patient x-rays of her right shoulder with the plan to proceed forward with additional imaging in the future. Patient will return to clinic in 1 month for reevaluation of symptoms and plan of care. Patient has been instructed to contact the clinic with any concerns before the next appointment. Dr. Lazaro has reviewed this note and agrees with this plan of care. This note was dictated using voice recognition software and make contain errors or omissions. [facility] Disclaimer: The information contained in this section may have been updated after the patient was seen, as this information can be updated by other users. Medical History Depression Essential hypertension Leukocytosis Surgical History H/O lateral meniscus repair of right knee H/O tubal ligation History of bladder surgery History of carpal tunnel release History of lumpectomy History of tonsillectomy and adenoidectomy Social History Smoking Status: Current every day smoker tobacco type: cigarettes packs per day: 1 second hand exposure: No alcohol intake: never substance use type: former substance user and p
[2022-09-02 12:30] VITALS: BP 142/87; PULSE 84; RESP 18; O2SAT 97; BMI 34.3
== END ==
PROVIDERS: PCP Emergency Medicine; Visit Provider Nurse Practitioner Family
DX: M51.16 Intervertebral disc disorders with radiculopathy, lumbar region (principal); M25.559 Pain in unspecified hip; M54.50 Low back pain, unspecified; M25.511 Pain in right shoulder; M79.604 Pain in right leg; G89.29 Other chronic pain
CPT/HCPCS: 99212; G0463

== ENCOUNTER → 2022-09-02 11:13 | Outpatient (CLI) | payer OTHER, SELFPAY ==
--- NOTE | 2022-09-02 11:18 | XR_ITS ---
FINAL REPORT CLINICAL HISTORY: R SHOULDER PAIN X 2 WKS, NKT. C/O NUMBNESS/TINGLING DOWN RT ARM FINDINGS: Internal, external rotation and scapular Y views of the right shoulder were obtained. There is no prior exam for comparison. There is no fracture or dislocation. There are degenerative changes of the acromioclavicular joint. Soft tissues are normal. IMPRESSION: Degenerative changes of the acromioclavicular joint without acute osseous abnormality of the right shoulder. Reviewed, Interpreted and Dictated by Blanca Carpenter MD Transcribed by Nely Garsia Authenticated and . [facility]
== END ==
LOC: RAD 11:13
PROVIDERS: PCP Emergency Medicine; Visit Provider Nurse Practitioner Family
DX: M25.511 Pain in right shoulder (principal)
CPT/HCPCS: 73030

== ENCOUNTER 2022-09-02 13:00 | Outpatient (RCR) | payer OTHER, SELFPAY ==
--- NOTE | 2022-08-09 14:07 | HMH.PTOPEV ---
PT Outpatient Evaluation Rehab PT Outpatient Evaluation Start: 08/09/22 13:35 Freq: Status: Active Protocol: Document 08/09/22 13:37 CARIDAD (Rec: 08/09/22 14:02 CARIDAD [id number]) E-signed By Jadon Cordova, PT Outpatient Therapy Subjective History Subjective History Patient is a 42 year old female presenting to outpatient PT with reports of chronic LBP with RLE radicular symptoms starting approx 30 years ago that have progressively gotten worse over the last month. Most recent imaging indicates multilevel DDD with disc protrusion at L5/S1. Comorbities include hx of HTN, HL, B CTR and L medial meniscus tear. Chief Complaint Pain,Stiff,Weakness Symptom Type Sharp,Dull,Numbness,Tingling Symptoms Relieved By Prescription Meds Symptoms Aggravated By Sitting,Standing,Bending/ Stooping,Physical Activity, Walking,Lifting Prior Functional Limitations Lifting,Housework,Sleeping, Standing,Sitting,Walking, Bending/Stooping Current Functional Limitations Lifting,Housework,Dressing, Standing,Sitting,Walking, Bending/Stooping Symptom Description Intermittent Level of pain today (0-10) 8 Pain scale - at its best (0-10) 0 Pain scale - at its worst (0-10) 10 Lumbopelvic Eval Posture Thoracic Spine Posture Standing Position Increased Kyphosis Lumbar Spine Posture Standing Position Increased Lordosis Assistive device Assistive Devices None / NA Palapation tenderness right buttock tenderness Yes: B R>L 3/4 Lumbar/Sacral Palpation Findings Tenderness Lumbar/Sacral Palpation Overall Comment R SIJ 3/4 Accessory Movement L4 right L5 right S1 right Range of Motion Lumbar Spine Active Flexion Range of 65 Motion (degrees) Lumbar Spine Active Extension Range of 10 Motion (degrees) Left Lumbar Spine Lateral Flexion Active 12 Range of Motion (degrees) Right Lumbar Spine Lateral Flexion 15 Active Range of Motion (degrees) Lumbar Spine ROM Limitations Soft Tissue Tightness,Bony Restriction Manual Muscle Test Bilateral Knee Extension Strength Grade 4 Good Knee Flexion Strength Grade
== END 2022-09-17 13:07 | disposition home or self-care (01) ==
LOC: PT 13:00
PROVIDERS: PCP Emergency Medicine; Visit Provider Nurse Practitioner Family
DX: M54.50 Low back pain, unspecified (principal); M79.604 Pain in right leg; M79.605 Pain in left leg
CPT/HCPCS: 97010; 97012; 97014; 97110; 97140; 97163; G0283

== ENCOUNTER → 2022-09-16 09:37 | Outpatient (POV) | payer OTHER, SELFPAY ==
[2022-09-16 09:54] VITALS: BP 118/73; PULSE 93; RESP 18; O2SAT 98; BMI 35.6
--- NOTE | 2022-09-16 10:07 | EXP.PAIN.SOA ---
[facility] Pain Management SOAP Note Subjective:: Patient is a pleasant 42-year-old female who presents today for follow-up of x-rays of her right shoulder. We are currently treating the patient for degenerative disc disease of lumbar spine with lumbar radiculopathy symptoms, hip pain, low back pain, right leg pain, chronic pain. Today she rates her pain an 8 out of 10. Patient denies any new trauma or injury. Patient denies any change to location or type of pain she experiences. Patient continues to have pain in her right shoulder as well as her low back and hips. Patient states that she has been taken off work by Dr. Chavez in [place] due to the extent of arthritis in her hips. Patient was referred to a Dr. Pierre who specializes in hips. Patient states that they did recommend her to go see a pain management in [facility] however she has not done this at this time. Patient states that she did explain that she was already in a pain management however she was told that Dr. Pierre works specifically with this group. Patient has been in physical therapy however she only attended 4 visits and stopped due to having no additional improvement. Patient states that she felt like it was a waste of time and she was having to miss work in order to go to these visits. Patient continues to describe her pain as a aching, throbbing sensation that is worse with increased activity. She is currently managed with gabapentin 600 mg 3 times a day, Percocet 10 mg 3 times a day and clonazepam 0.5 mg twice a day from her primary care doctor. Patient denies any side effects from these medications. Patient states that her insurance does change 18 September and she is hoping that she will be able to reschedule the transforaminal epidural. Her Eric is [phone]. Its been reviewed and appropriate. Review of Systems: General: No recent weight changes, no fever, no sleep disturbances Respiratory: No cough, no shortness of air, no recurring pulmonary infections Cardiovascular/peripheral vascular: No chest pain, no palpitations, no edema, no shortness of breath Gastrointestinal: No new onset incontinence, normal bowel movements reported Genitourinary: No new onset incontinence Musculoskeletal: Right shoulder pain, low back pain, hip pain Psychiatric: [Normal mood/affect] Neurological: [Denies weakness in extremities], [denies balance issues] Objective:: Physical Exam: General: Alert and oriented x3, no acute distress, pleasant and cooperative Lungs: Respirations even and unlabored, symmetrical chest expansion Eyes: PERRL Musculoskeletal: Flexion and extension of lumbar [spine] somewhat guarded secondary to pain, [antalgic gait noted] Neurological: Speech clear, no gross sensory deficit Assessment:: Degenerative disc disease of lumbar spine with lumbar radiculopathy symptoms, hip pain, low back pain, right leg pain, chronic pain Plan:: Patient continues to experience significant pain in her right shoulder and low back with radiating symptoms into her hips. Patient's x-ray showed no fractures or dislocations however had degenerative changes of the acromioclavicular joint. I will order an MRI without contrast of her right shoulder at today's visit. Patient will follow-up after this imaging in our office for reevaluation of symptoms. Patient was previously ordered a right transforaminal epidural however this was denied by insurance due to not having 6 weeks of physical therapy. Patient has been instructed to contact the clinic with any concerns before the next appointment. Dr. Lazaro has reviewed this note and agrees with this plan of care. This note was dictated using voice recognition software and make contain errors or omissions. [facility] Disclaimer: The information contained in this section may have been updated after the patient was seen, as this information can be updated by other users. Medical History Depression Essential hypert
== END ==
PROVIDERS: PCP Emergency Medicine; Visit Provider Nurse Practitioner Family
DX: M51.16 Intervertebral disc disorders with radiculopathy, lumbar region (principal); M25.559 Pain in unspecified hip; M79.604 Pain in right leg; G89.29 Other chronic pain
CPT/HCPCS: 99212; G0463

== ENCOUNTER 2022-09-18 13:31 | Emergency (ER) | payer BC, SELFPAY ==
[2022-09-18 13:31] VITALS: BP 157/92; PULSE 89; RESP 20; TEMP 37; O2SAT 98; BMI 35.6
--- NOTE | 2022-09-18 13:36 | EXP.UTC ---
Discharge Plan Disposition Patient Disposition: Home, Self-Care Condition: Good Prescriptions Prescriptions: New azithromycin [Zithromax] 250 mg tablet 250 mg PO UD DOSE PK Qty: 6 0RF Rx Instructions: Take two (2) tablets today, then one (1) tablet days #2 thru #5 benzonatate [benzonatate] 100 mg capsule 100 mg PO TIDP PRN (Reason: Cough) Qty: 30 0RF methylprednisolone 4 mg Tablets,Dose Pack 4 mg PO DIRECTED Qty: 21 0RF No Action Repatha SureClick 140 mg/mL pen injector 140 mg SQ Q2W albuterol sulfate 90 mcg/actuation aerosol powdr breath activated 2 inh INHALATION Q6H PRN (Reason: SOA) Qty: 1 0RF hydroxyzine pamoate [Vistaril] 25 mg capsule 25 mg PO TID PRN (Reason: itching) Qty: 60 0RF gabapentin 600 mg tablet 600 mg PO TID Qty: 90 0RF oxycodone-acetaminophen [Percocet] 10-325 mg tablet 1 tab PO TID Qty: 90 0RF atorvastatin 80 mg tablet See Rx Instructions .ROUTE .COMPLEX Rx Instructions: TAKE ONE TABLET BY MOUTH EVERY DAY AT BEDTIME FOR cholesterol metoprolol tartrate 100 mg tablet 100 mg PO BID clonazepam [Klonopin] 0.5 mg tablet 0.5 mg PO BID omeprazole 20 mg capsule,delayed release(DR/EC) See Rx Instructions .ROUTE .COMPLEX Rx Instructions: TAKE TWO CAPSULES BY MOUTH EVERY MORNING furosemide 20 mg tablet See Rx Instructions .ROUTE .COMPLEX Rx Instructions: TAKE ONE TABLET BY MOUTH EVERY DAY FOR swelling sertraline 50 mg tablet See Rx Instructions .ROUTE .COMPLEX Rx Instructions: TAKE ONE TABLET BY MOUTH EVERY DAY trazodone 50 mg tablet See Rx Instructions .ROUTE .COMPLEX Rx Instructions: TAKE ONE TABLET BY MOUTH EVERY NIGHT AT BEDTIME Referrals Follow up/Referrals: Casey Acosta MD [Primary Care Provider] - See instructions Activity Restrictions/Add. Instructions Additional Instructions/Restrictions: Drink plenty of fluids. Take tylenol or ibuprofen for pain or fever. Take the medications as directed. Follow up with your regular doctor. GO TO THE ER FOR ANY WORSENING SYMPTOMS Don't start the oral steroids until tomorrow, since you had the shot here today. Clinical Impressions Clinical Impression: Otitis media Instructions Patient Instructions: Middle Ear Infection, Dexamethasone Discharge ED Provider: Aldo Abreu [facility] [place] General Stated complaint: soa, Rt ear pain Time Seen by Provider: 09/18/22 13:36 History of Present Illness Provider Complaint: She c/o left ear pain for the past 3 days. Related Data Home Medications Medication Instructions Recorded Confirmed evolocumab 140 mg/mL subcutaneous 140 mg SQ Q2W Cholesterol 06/21/20 09/18/22 pen injector (Candace Cisneros) atorvastatin 80 mg tablet See Rx Instructions .Route 07/24/22 09/18/22 .COMPLEX Cholesterol clonazepam 0.5 mg tablet (Klonopin) 0.5 mg PO BID Anxiety 07/24/22 09/18/22 furosemide 20 mg tablet See Rx Instructions .Route 07/24/22 09/18/22 .COMPLEX Fluid metoprolol tartrate 100 mg tablet 100 mg PO BID BLOOD PRESSURE 07/24/22 09/18/22 omeprazole 20 mg capsule,delayed See Rx Instructions .Route 07/24/22 09/18/22 release .COMPLEX STOMACH sertraline 50 mg tablet See Rx Instructions .Route 07/24/22 09/18/22 .COMPLEX MOOD trazodone 50 mg tablet See Rx Instructions .Route 09/16/22 09/18/22 .COMPLEX SLEEP Previous Rx's Medication Instructions Recorded hydroxyzine pamoate 25 mg capsule 25 mg PO TID PRN itching #60 caps 03/20/22 (Vistaril) albuterol sulfate 90 mcg/actuation 2 inh inhalation Q6H PRN SOA #1 ea 07/16/22 breath activated powder inhaler azithromycin 250 mg tablet 250 mg PO UD DOSE PK #6 tabs 09/18/22 (Zithromax) benzonatate 100 mg capsule 100 mg PO TIDP PRN Cough #30 caps 09/18/22 methylprednisolone 4 mg tablets in 4 mg PO DIRECTED #21 tabs 09/18/22 a dose pack gabapentin 600 mg tablet 600 mg PO TID Pain #90 tabs 09/19/22 o
[2022-09-18 13:53] LABS: UTC Strep Screen (Rapid) Negative (Negative)
[2022-09-18 15:15] VITALS: BP 157/92; PULSE 89; RESP 20; TEMP 37; O2SAT 98
== END 2022-09-18 15:00 | disposition home or self-care (01) ==
PROVIDERS: Emergency Provider Nurse Practitioner Family; PCP Emergency Medicine
DX: H66.90 Otitis media, unspecified, unspecified ear (principal)
CPT/HCPCS: 87880; 96372; 99212; 99213; G0463

== ENCOUNTER → 2022-09-23 10:49 | Outpatient (POV) | payer BC, SELFPAY ==
--- NOTE | 2022-09-23 11:13 | EXP.PAIN.SOA ---
[facility] Pain Management SOAP Note Subjective:: Patient is a pleasant 42-year-old female who presents today for follow-up.? We are currently treating the patient for degenerative disc disease of lumbar spine with lumbar radiculopathy symptoms, hip pain, low back pain, right leg pain, chronic pain.? Today she rates her pain an 7 out of 10.? Patient denies any new trauma or injury.? Patient denies any change to location or type of pain she experiences.? She does continue to have low back pain with radiating symptoms into her right leg as well as right shoulder pain. At our last visit we did order an MRI of the right shoulder however her insurance did change and it is has not been approved at this time. She states she did recently read Dr. Chavez follow-up note from her last visit however what is written in it is the complete opposite of what he had discussed with her. Dr. Chavez did take her off work due to medical concerns related to her severe arthritis in her hips.? She was referred to a Dr. Pierre who specializes in hips.? She is scheduled to see pain management in [facility] tomorrow and was only sent there due to Dr. Pierre using this group.? Patient has been in physical therapy over the last couple of months however she stopped attending due to worsening pain symptoms as well as no improvement.? Patient continues to describe her pain as a aching, throbbing sensation that is worse with increased activity.? She is currently managed with gabapentin 600 mg 3 times a day, Percocet 10 mg 3 times a day and clonazepam 0.5 mg twice a day from Dr. Acosta.? Patient denies any side effects from these medications.? She was previously prescribed compounding cream that she states is now on the order and should be receiving it in the next few days. Her Eric is [phone].? Its been reviewed and appropriate. Review of Systems: General: No recent weight changes, no fever, no sleep disturbances Respiratory: No cough, no shortness of air, no recurring pulmonary infections Cardiovascular/peripheral vascular: No chest pain, no palpitations, no edema, no shortness of breath Gastrointestinal: No new onset incontinence, normal bowel movements reported Genitourinary: No new onset incontinence Musculoskeletal: Low back pain, right leg pain, right shoulder pain Psychiatric: [Normal mood/affect] Neurological: [Denies weakness in extremities], [denies balance issues] Objective:: Physical Exam: General: Alert and oriented x3, no acute distress, pleasant and cooperative Lungs: Respirations even and unlabored, symmetrical chest expansion Eyes: PERRL Musculoskeletal: Flexion and extension of lumbar [spine] somewhat guarded secondary to pain, [antalgic gait noted] Neurological: Speech clear, no gross sensory deficit FINDINGS: Multiplanar MR imaging of the lumbar spine was performed without contrast. ? On the sagittal T2-weighted images, disc degeneration is seen throughout.? There are mild endplate changes at several levels.? There is mild retrolisthesis of L1 on L2, L2 on L3, L3 on L4 and L4 on L5.? There is no evidence of fracture.? No bony mass is identified. The conus is seen at approximately the L1 level and has an unremarkable appearance. T11-12: Annular disc bulge with osteophytes and mild bilateral neural foraminal narrowing.? ? T12-L1: No significant central canal stenosis or neural foraminal narrowing.? L1-2:? Annular disc bulge with facet arthropathy mild bilateral neural foraminal narrowing.? L2-3:? Annular disc bulge with facet arthropathy mild bilateral neural foraminal narrowing.? L3-4: Annular disc bulge with facet arthropathy and small left paracentral disc protrusion.? There is mild right and moderate left neural foraminal narrowing.? L4-5:? Annular disc bulge with right foraminal disc protrusion.? There is moderate right and mild left neural foraminal narrowing.? L5-S1:? Annular disc bulge with facet arthropathy and osteophytes.? There is a right foraminal disc protrusion w
[2022-09-23 12:14] VITALS: BP 150/85; PULSE 80; RESP 18; O2SAT 97; BMI 35.4
== END ==
PROVIDERS: PCP Emergency Medicine; Visit Provider Nurse Practitioner Family
DX: M51.16 Intervertebral disc disorders with radiculopathy, lumbar region (principal); M79.604 Pain in right leg; M25.559 Pain in unspecified hip; G89.29 Other chronic pain; F17.210 Nicotine dependence, cigarettes, uncomplicated
CPT/HCPCS: 99212; G0463

== ENCOUNTER → 2022-10-11 13:55 | Outpatient (CLI) | payer BC, SELFPAY ==
[2022-10-11 15:29] LABS: Amphetamine/Metha Screen,Urine Negative ng/ml (<1000); Barbiturates Screen,Urine Negative ng/ml (<200)
[2022-10-11 15:30] LABS: Benzodiazepines Screen,Urine Negative ng/ml (<200)
[2022-10-11 15:31] LABS: Cannabinoid Screen,Urine Negative ng/ml (<50); Cocaine Screen,Urine Negative ng/ml (<300)
[2022-10-11 15:32] LABS: Methadone Screen,Urine Negative ng/ml (<300); Phencyclidine Screen,Urine Negative ng/ml (<25)
[2022-10-11 15:34] LABS: Opiate Screen,Urine Positive ng/ml (<300)
== END ==
PROVIDERS: PCP Emergency Medicine; Visit Provider Emergency Medicine
DX: Z79.899 Other long term (current) drug therapy (principal)
CPT/HCPCS: 80305

== ENCOUNTER 2022-10-15 10:02 | Day surgery (SDC) | payer BC, SELFPAY ==
[2022-10-15 10:35] VITALS: BP 139/83; PULSE 101; RESP 18; TEMP 36.9; O2SAT 99; BMI 32.1
[2022-10-15 10:50] VITALS: BP 148/97; PULSE 101; RESP 18; O2SAT 97
[2022-10-15 10:52] VITALS: BP 148/97; PULSE 101; RESP 18; O2SAT 97
[2022-10-15 10:57] VITALS: BP 126/78; PULSE 97; RESP 18; O2SAT 99
--- NOTE | 2022-10-15 10:58 | EXP.PAIN.PRO ---
Procedure Date: 10/15/22 Time: 10:50 Anesthesiologist:: Zach Norris CRNA Complications:: None Pre-procedure Diagnosis:: Degenerative disc disease lumbar spine multilevels. Lumbar radiculopathy. Lumbar disc herniation multilevel. Right foraminal stenosis L4-5 and L5-S1. Post-procedure Diagnosis:: Same. Indications for Procedure:: Patient is a pleasant 42-year-old female that comes our clinic today for right L4-5, L5-S1 transforaminal epidural steroid injection. Patient complaining of low back pain. Also right hip and leg radicular symptoms to the foot. She rates her pain 7/10. Procedure Details:: Details of the procedure were explained to the patient. The patient was taken the procedure room placed in the prone position. The area of the lumbar spine was cleansed using chlorhexidine as a cleansing solution. At this time using fluoroscopy guidance markers were placed on the right lateral border of the L4 and L5 vertebral body. The skin and subcutaneous tissue was anesthetized using 1% lidocaine and 25-gauge needle. At this time using a 22-gauge 3-1/2 inch spinal needle the right upper one third of the L4-5 foramen was accessed. The same was done at the right L5-S1 foramen. Needle positions were confirmed and a lateral view using fluoroscopy and contrast dye. At this time 1 cc of 1% lidocaine +20 mg of Depo-Medrol was injected at each level after negative aspiration. [place] were removed. Band-Aid applied. Patient tolerated the procedure without difficulty. There are no complications. Plan and Disposition:: Patient was discharged without incident.
== END 2022-10-15 10:57 | disposition home or self-care (01) ==
PROVIDERS: PCP Emergency Medicine; Visit Provider Nurse Anesthetist, Certified Registered
DX: M51.16 Intervertebral disc disorders with radiculopathy, lumbar region (principal); M48.061 Spinal stenosis, lumbar region without neurogenic claudication
CPT/HCPCS: 64483; 64484; J1030

== ENCOUNTER → 2022-12-17 15:07 | Outpatient (CLI) | payer BC, SELFPAY ==
[2022-12-17 14:55] LABS: Amphetamine/Metha Screen,Urine Negative ng/ml (<1000)
[2022-12-17 14:56] LABS: Barbiturates Screen,Urine Negative ng/ml (<200); Benzodiazepines Screen,Urine Positive ng/ml (<200)
[2022-12-17 14:57] LABS: Cannabinoid Screen,Urine Negative ng/ml (<50)
[2022-12-17 14:58] LABS: Cocaine Screen,Urine Negative ng/ml (<300); Methadone Screen,Urine Negative ng/ml (<300)
[2022-12-17 14:59] LABS: Opiate Screen,Urine Positive ng/ml (<300)
[2022-12-17 15:00] LABS: Phencyclidine Screen,Urine Negative ng/ml (<25)
== END ==
PROVIDERS: PCP Emergency Medicine; Visit Provider Emergency Medicine
DX: M54.16 Radiculopathy, lumbar region (principal)
CPT/HCPCS: 80305

== ENCOUNTER → 2023-02-14 15:00 | Outpatient (CLI) | payer SELFPAY ==
[2023-02-14 18:22] LABS: Amphetamine/Metha Screen,Urine Negative ng/ml (<1000)
[2023-02-14 18:23] LABS: Benzodiazepines Screen,Urine Positive ng/ml (<200); Cannabinoid Screen,Urine Negative ng/ml (<50)
[2023-02-14 18:24] LABS: Cocaine Screen,Urine Negative ng/ml (<300)
[2023-02-14 18:25] LABS: Methadone Screen,Urine Negative ng/ml (<300)
[2023-02-14 20:10] LABS: Barbiturates Screen,Urine Negative ng/ml (<200)
[2023-02-14 20:14] LABS: Opiate Screen,Urine Positive ng/ml (<300); Phencyclidine Screen,Urine Negative ng/ml (<25)
== END ==
LOC: LAB.DROPOF 03-19 11:10
PROVIDERS: PCP Emergency Medicine; Visit Provider Emergency Medicine
DX: Z79.899 Other long term (current) drug therapy (principal)
CPT/HCPCS: 80305

== ENCOUNTER → 2023-04-09 11:00 | Outpatient (CLI) | payer SELFPAY ==
[2023-04-09 23:22] LABS: Amphetamine/Metha Screen,Urine Negative ng/ml (<1000); Barbiturates Screen,Urine Negative ng/ml (<200)
[2023-04-09 23:23] LABS: Benzodiazepines Screen,Urine Negative ng/ml (<200); Cannabinoid Screen,Urine Positive ng/ml (<50)
[2023-04-09 23:24] LABS: Cocaine Screen,Urine Negative ng/ml (<300)
[2023-04-09 23:25] LABS: Methadone Screen,Urine Negative ng/ml (<300); Opiate Screen,Urine Negative ng/ml (<300)
[2023-04-09 23:26] LABS: Phencyclidine Screen,Urine Negative ng/ml (<25)
== END ==
PROVIDERS: PCP Emergency Medicine; Visit Provider Emergency Medicine
DX: Z79.899 Other long term (current) drug therapy (principal)
CPT/HCPCS: 80305

== ENCOUNTER → 2023-05-08 09:22 | Outpatient (CLI) | payer SELFPAY ==
[2023-05-08 09:55] LABS: Basophils # 0.1 K/mm3 (0-0.2); Basophils % 0.6 % (0.1-2.0); Eosinophils # 0.3 K/mm3 (0.0-0.4); Eosinophils % 2.3 % (0.1-12.0); Hematocrit 45.2 % (37.0-47.0); Hemoglobin 15.7 g/dL (12.2-16.2); Lymphocytes # 3.1 K/mm3 (0.7-4.5); Lymphocytes % 26.5 % (10-50); Mean Corpuscular HGB Conc 34.8 g/dL (31.8-35.4); Mean Corpuscular Hemoglobin 33.5 pg (27.0-31.2); Mean Corpuscular Volume 96.3 fl (81-99); Mean Platelet Volume 7.9 fl (7.4-10.4); Monocytes # 0.6 K/mm3 (0.1-1.0); Monocytes % 5.5 % (1.7-9.3); Neutrophils # 7.5 K/mm3 (1.8-7.8); Neutrophils % 65.1 % (37.0-80.0); Platelet Count 238 K/mm3 (142-424); Red Blood Count 4.69 M/mm3 (4.20-5.40); White Blood Count 11.5 K/mm3 (4.8-10.8)
[2023-05-08 10:40] LABS: Albumin Level 4.9 g/dl (3.5-5.0); Albumin/Globulin Ratio 1.5 (1.1-1.8); Anion Gap 16.6 mEq/L (5-15); Blood Urea Nitrogen 8 mg/dl (7-17); Carbon Dioxide 26 mmol/L (22.0-30.0); Chloride 100 mmol/L (98-107); Cholesterol 315 mg/dl (140-200); Estimated Glomerular Filt Rate 91 ml/min (>60); GFR (African American) 110 ML/MIN (>60); Globulin 3.2 g/dL (1.3-3.2); Glucose 123 mg/dl (74-100); Potassium 3.6 mmoL/L (3.5-5.1); Sodium 139 mmol/L (136-145); Total Protein,Serum 8.1 g/dl (6.3-8.2); Triglycerides 128 mg/dl (30-150); VLDL Cholesterol 26 mg/dL (0-40)
[2023-05-08 10:41] LABS: Alanine Aminotransferase 21 U/L (12-78); Alkaline Phosphatase 104 U/L (38-126); Aspartate Amino Transferase 30 U/L (14-36); Calcium 10.7 mg/dl (8.4-10.2); Chol/HDL Ratio 5.7 (1-3.5); HDL Cholesterol 55 mg/dl (40-60)
[2023-05-08 10:52] LABS: Direct LDL Cholesterol 208.59 mg/dL (100-129)
[2023-05-08 10:55] LABS: 25-OH Vitamin D, Total 37.1 ng/mL (30-100)
[2023-05-08 11:05] LABS: Free T4 (Free Thyroxine) 1.35 ng/dl (0.78-2.19)
[2023-05-08 11:10] LABS: Thyroid Stimulating Hormone 3.24 uIU/mL (0.465-4.68)
== END ==
LOC: LAB 09:23
PROVIDERS: PCP Emergency Medicine; Visit Provider Emergency Medicine
DX: E66.3 Overweight (principal); E55.9 Vitamin D deficiency, unspecified; Z79.899 Other long term (current) drug therapy
CPT/HCPCS: 36415; 80053; 80061; 82306; 84439; 84443; 85025

== ENCOUNTER 2023-05-13 18:32 | Emergency (ER) | payer SELFPAY ==
[2023-05-13] VITALS (7 sets, daily range): BP systolic 116–134; BP diastolic 71–85; PULSE 72–97; RESP 12–24; TEMP 36.8; O2SAT 97–99; BMI 29.4
--- NOTE | 2023-05-13 19:17 | ECG_ITS ---
APPROVED REPORT Exam: Resting ECG HR:92 bpm ECG Measurements Heart Rate 92 AXES WA 128 P 60 QRSd 81 QRS 63 QT 352 T 66 QTc 402 Conclusion SINUS RHYTHM WITH OCCASIONAL VENTRICULAR PREMATURE COMPLEXES BORDERLINE ECG UNCONFIRMED REPORT Electronically signed by : Barrett Giordano MD 05/15/2023 21:29:45
--- NOTE | 2023-05-13 19:27 | XR_ITS ---
PROCEDURE INFORMATION: Exam: XR Chest Exam date and time: 05/13/2023 7:39 PM Age: 43 years old Clinical indication: Smoker's cough; Additional info: Arrhythmia TECHNIQUE: Imaging protocol: Radiologic exam of the chest. Views: 2 views. COMPARISON: CR XR CHEST 2V 03/19/2022 10:34 AM FINDINGS: Lungs: Unchanged right upper lobe calcified granuloma. Remainder of the lungs are clear. Unchanged calcified right hilar lymph node. Pleural spaces: Normal No pleural effusion. No pneumothorax. Heart/Mediastinum: Normal. No cardiomegaly. Bones/joints: Mild thoracic spine dextroscoliosis with mild multilevel degenerative disc disease. IMPRESSION: No acute findings.
[2023-05-13 19:30] LABS: Basophils # 0.1 K/mm3 (0-0.2); Basophils % 1.1 % (0.1-2.0); Eosinophils # 0.5 K/mm3 (0.0-0.4); Eosinophils % 4.5 % (0.1-12.0); Hematocrit 44.9 % (37.0-47.0); Hemoglobin 15.4 g/dL (12.2-16.2); Lymphocytes # 4.7 K/mm3 (0.7-4.5); Lymphocytes % 43.3 % (10-50); Mean Corpuscular HGB Conc 34.3 g/dL (31.8-35.4); Mean Corpuscular Hemoglobin 32.9 pg (27.0-31.2); Mean Corpuscular Volume 96.1 fl (81-99); Mean Platelet Volume 8.4 fl (7.4-10.4); Monocytes # 0.4 K/mm3 (0.1-1.0); Neutrophils # 5.1 K/mm3 (1.8-7.8); Neutrophils % 47.2 % (37.0-80.0); Platelet Count 276 K/mm3 (142-424); Red Blood Count 4.67 M/mm3 (4.20-5.40); Red Cell Distribution Width 12.8 % (11.5-17.5); White Blood Count 10.9 K/mm3 (4.8-10.8)
[2023-05-13 19:50] LABS: Alanine Aminotransferase 20 U/L (12-78); Albumin Level 4.3 g/dl (3.5-5.0); Albumin/Globulin Ratio 1.4 (1.1-1.8); Alkaline Phosphatase 84 U/L (38-126); Anion Gap 12.9 mEq/L (5-15); Aspartate Amino Transferase 32 U/L (14-36); Bilirubin,Total 0.5 mg/dl (0.2-1.3); Blood Urea Nitrogen 9 mg/dl (7-17); Calcium 9.3 mg/dl (8.4-10.2); Carbon Dioxide 27 mmol/L (22.0-30.0); Chloride 103 mmol/L (98-107); Creatinine Clearance Estimated 95 mL/min (50-200); Estimated Glomerular Filt Rate 68 ml/min (>60); GFR (African American) 82 ML/MIN (>60); Glucose 108 mg/dl (74-100); Potassium 3.9 mmoL/L (3.5-5.1); Sodium 139 mmol/L (136-145); Total Protein,Serum 7.3 g/dl (6.3-8.2)
[2023-05-13 20:06] LABS: Troponin I < 0.01 ng/ml (0.00-0.034)
--- NOTE | 2023-05-13 20:09 | HMH.EDGENADL ---
Discharge Plan Disposition Patient Disposition: Home, Self-Care Prescriptions Prescriptions: No Action Repatha SureClick 140 mg/mL pen injector 140 mg SQ Q2W albuterol sulfate 90 mcg/actuation aerosol powdr breath activated 2 inh INHALATION Q6H PRN (Reason: SOA) Qty: 1 0RF lisinopril 20 mg tablet 20 mg PO DAILY Qty: 30 1RF gabapentin 600 mg tablet 600 mg PO QID Qty: 120 1RF clonazepam [Klonopin] 0.5 mg tablet 0.5 mg PO BID Qty: 60 1RF oxycodone-acetaminophen [Percocet] 10-325 mg tablet 1 tab PO QID Qty: 120 0RF hydroxyzine pamoate [Vistaril] 25 mg capsule 25 mg PO TID PRN (Reason: itching) Qty: 60 0RF atorvastatin 80 mg tablet See Rx Instructions .ROUTE .COMPLEX Qty: 90 1RF Dose Instruction: TAKE ONE TABLET BY MOUTH EVERY DAY AT BEDTIME FOR cholesterol Rx Instructions: TAKE ONE TABLET BY MOUTH EVERY DAY AT BEDTIME FOR cholesterol sertraline 50 mg tablet See Rx Instructions .ROUTE .COMPLEX Qty: 90 1RF Dose Instruction: TAKE ONE TABLET BY MOUTH EVERY DAY Rx Instructions: TAKE ONE TABLET BY MOUTH EVERY DAY furosemide 20 mg tablet See Rx Instructions .ROUTE .COMPLEX Qty: 90 1RF Dose Instruction: TAKE ONE TABLET BY MOUTH EVERY DAY FOR swelling Rx Instructions: TAKE ONE TABLET BY MOUTH EVERY DAY FOR swelling trazodone 50 mg tablet 50 mg PO HS Qty: 90 1RF sulfamethoxazole-trimethoprim [Bactrim DS] 800-160 mg tablet 1 tab PO BID 3 Days Qty: 6 0RF Rx Instructions: Drink plenty of water metoprolol tartrate 100 mg tablet 100 mg PO BID omeprazole 20 mg capsule,delayed release(DR/EC) See Rx Instructions .ROUTE .COMPLEX Rx Instructions: TAKE TWO CAPSULES BY MOUTH EVERY MORNING fluticasone propionate [Flonase Allergy Relief] 50 mcg/actuation spray,suspension 1 spray intranasal DAILY Rx Instructions: administer into each nostril loratadine [Claritin] 10 mg tablet 10 mg PO DAILY Referrals Follow up/Referrals: Casey Acosta MD [Primary Care Provider] - See instructions Activity Restrictions/Add. Instructions Additional Instructions/Restrictions: Call your family doctor to establish care for this visit to the emergency department and schedule follow-up within 48 hours to ensure improvement. If you have any worsening of your condition or any other concerning signs or symptoms, return to the emergency department or your primary care doctor for further evaluation. Follow-up with cardiology daily aspirin until that time 81 mg. Clinical Impressions Clinical Impression: Chest pain Discharge ED Provider: Markos Leblanc General Adult HPI General Chief complaint: Arrhythmia/Palpitations Stated complaint: neck pain , upper body pain, heart racing , weak Time Seen by Provider: 05/13/23 18:36 Mode of Arrival: Ambulatory Source of Information: Patient Limitations: No Limitations Description of Symptoms (Recalled from ER Triage Doc. by RN): Patient reports feeling like her hert is racing and being weak all day. States that her shoulders and neck hurt so much that she can barely lift her arms. History of Present Illness HPI narrative: 43-year-old female with no relevant medical history presenting with multiple complaints. Patient states that she woke up today and began feeling weaker than usual. States that her heart felt like it was racing as well. Patient denies fevers or chills, nausea or vomiting, chest pain, but did feel short of breath. No diaphoresis. Did not see her family doctor, did not take any medications for this. Related Data Home Medications Medication Instructions Recorded Confirmed evolocumab 140 mg/mL subcutaneous 140 mg SQ Q2W Cholesterol 06/21/20 02/14/23 pen injector (Candace Cisneros) metoprolol tartrate 100 mg tablet 100 mg PO BID BLOOD PRESSURE 07/24/22 02/14/23 omeprazole 20 mg capsule,delayed See Rx Instructions .Route 07/24/22 02/14/23 release .COMPL
[2023-05-13 20:11] LABS: Thyroid Stimulating Hormone 5.94 uIU/mL (0.465-4.68)
--- NOTE | 2023-05-13 20:52 | ECG_ITS ---
APPROVED REPORT Exam: Resting ECG HR:76 bpm ECG Measurements Heart Rate 76 AXES OK 141 P 57 QRSd 81 QRS 58 QT 370 T 57 QTc 400 Conclusion SINUS RHYTHM NORMAL ECG UNCONFIRMED REPORT Electronically signed by : Barrett Giordano MD 05/15/2023 21:29:40
[2023-05-13 22:51] LABS: Troponin I < 0.01 ng/ml (0.00-0.034)
== END 2023-05-13 23:03 | disposition home or self-care (01) ==
PROVIDERS: Emergency Provider Emergency Medicine; PCP Emergency Medicine
DX: R07.9 Chest pain, unspecified (principal)
CPT/HCPCS: 36415; 71046; 80053; 84436; 84443; 84484; 85025; 93005; 99285

== ENCOUNTER → 2023-06-06 12:00 | Outpatient (CLI) | payer SELFPAY ==
[2023-06-06 19:26] LABS: Amphetamine/Metha Screen,Urine Negative ng/ml (<1000); Barbiturates Screen,Urine Negative ng/ml (<200)
[2023-06-06 19:27] LABS: Benzodiazepines Screen,Urine Negative ng/ml (<200)
[2023-06-06 19:28] LABS: Cannabinoid Screen,Urine Negative ng/ml (<50)
[2023-06-06 19:32] LABS: Methadone Screen,Urine Negative ng/ml (<300); Opiate Screen,Urine Negative ng/ml (<300)
[2023-06-06 19:56] LABS: Cocaine Screen,Urine Negative ng/ml (<300)
[2023-06-06 20:00] LABS: Phencyclidine Screen,Urine Negative ng/ml (<25)
== END ==
LOC: LAB.DROPOF 06-07 00:14
PROVIDERS: PCP Emergency Medicine; Visit Provider Emergency Medicine
DX: Z79.899 Other long term (current) drug therapy (principal)
CPT/HCPCS: 80305